=== PATIENT | female | born 1980 | race American Indian/Alaskan Native ===

== ENCOUNTER 2016-08-18 01:49 | Emergency (ER) | payer MEDICAID ==
[2016-08-18 03:47] LABS: Basophils % (Auto) 0.2 % (0.0-1.8); Eosinophils % (Auto) 0.9 % (0.0-4.3); Hematocrit 32.6 % (30.3-42.9); Hemoglobin 10.8 gm/dl (10.1-14.3); Mean Corpuscular HGB Conc 33 % (30-34); Mean Corpuscular Hemoglobin 28 pg (28-32); Mean Corpuscular Volume 84 fl (79-97); Platelet Count 306 K/mm3 (140-440); Red Blood Count 3.87 M/mm3 (3.65-5.03); Red Cell Distribution Width 16.2 % (13.2-15.2); White Blood Count 9.6 K/mm3 (4.5-11.0)
[2016-08-18 04:00] LABS: Alanine Aminotransferase 12 units/L (7-56); Albumin 3.7 g/dL (3.9-5); Albumin/Globulin Ratio 1.1 %; Alkaline Phosphatase 57 units/L (35-129); Anion Gap 17 mmol/L; Bilirubin,Total 0.3 mg/dL (0.1-1.2); Blood Urea Nitrogen 4 mg/dL (7-17); Calcium 9.4 mg/dL (8.4-10.2); Carbon Dioxide 22 mmol/L (22-30); Glucose 110 mg/dL (65-100); Lipase 21 units/L (13-60); Potassium 3.3 mmol/L (3.6-5.0); Sodium 135 mmol/L (137-145); Total Protein 7.1 g/dL (6.3-8.2)
--- NOTE | 2016-08-18 06:30 | Ultrasound Report ---
FINAL REPORT PROCEDURE: US OB \T\gt; = 14 WEEKS FETUS TECHNIQUE: Real-time limited sonographic examination was performed for evaluation of size, position, heartbeat, fluid volume for each fetus with image documentation (1 or more fetuses). CPT 75859 HISTORY: 16 weeks , abdominal pain COMPARISON: No prior studies are available for comparison. FINDINGS: MATERNAL Uterus: Within normal limits . Cervix length: 3.5 cm. Internal Os: Closed . FETUS IUP: Single living intrauterine . Position: Cephalic. Placental position: Posteriorly, without previa . Amniotic fluid volume: Normal . Heart rate and rhythm: 150 BPM, Regular . anatomic survey: Normal . MEASUREMENTS BPD: 3.8 centimeter. HC: 14.2 centimeter. AC: 12.2 centimeter. FL: 2.8 centimeter. Mean Gestational Age (composite criteria): 18 weeks 0 days. Ratio biometry: Normal . Estimated Weight: 228 grams. Interval growth: No prior studies. Estimated Due Date (earliest scan): 01/19/2017. IMPRESSION: 1. Single living intrauterine gestation at approximately 18 weeks 0 days. 2. EDC by US 01/19/2017.
[2016-08-18] MEDS ORDERED: BSS ONE (10:23)
[2016-08-18] MEDS ORDERED: FUL-GLO OP ONE ×2 (10:23→10:28)
[2016-08-18] MEDS ORDERED: TETRACAINE 0.5% ONE (10:24)
[2016-08-18] MEDS ORDERED: TETRACAINE 0.5% OU STA (10:28)
[2016-08-18] MEDS ORDERED: K-DUR PO ONE (10:41)
--- NOTE | 2016-08-18 10:43 | Emergency Department Report ---
ED General Adult HPI - General Chief complaint: Abdominal Pain Stated complaint: LEFT EYE PAIN Time Seen by Provider: 08/18/16 10:26 Source: patient, EMS (ems notes not available at time of chart dictation), RN notes reviewed Mode of arrival: Ambulatory Limitations: No Limitations - History of Present Illness Initial comments: This is a 36-year-old female. She is previously unknown to me. She is 5, para 3. Last menstrual period is April 11. Her dinkey motor operator is Dr. Desouza. The patient presents to the ER with 2 complaints. The patient complains of left eye redness, left eye pain, left eye blurry vision. This is not associated with trauma per se, although the patient reports that her allergies have been acting up, and that she has been rubbing her eye. She does report a scratchy and scratch-sensation in the left eye. Patient does not work contact lenses. The patient reports that she wears glasses. The patient also complains of abdominal pressure and cramping. The abdominal pressure and cramping has been constant during her . It is in the suprapubic, left lower quadrant and right lower quadrant. It vacillates back and forth. There is no vomiting. No irritative or obstructive urinary symptoms. The pain that she is experiencing today is the same as she always has. She reports that her abdominal pain is not her main complaints and that her ocular complaints are her main complaint. ocular comfort has no exacerbating or relieving factors that she is aware of. Abdominal discomfort has no exacerbating or relieving factors that she is aware of. -: Gradual Location: eyes, abdomen Quality: aching Consistency: intermittent Improves with: none Worsens with: none Associated Symptoms: denies: confusion, chest pain, cough, diaphoresis, loss of appetite, malaise, nausea/vomiting, shortness of breath, syncope, weakness - Related Data Previous Rx's Medication Instructions Recorded Last Taken Type Ketorolac Tromethamin 0.4%(Nf) 1 drop OS QID #100 drops 08/18/16 Unknown Rx [Acular Ls 0.4% Ophth Maryanne] Allergies Allergy/AdvReac Type Severity Reaction Status Date / Time iodine Allergy Mild Itching Verified 03/07/13 13:11 oxycodone HCl [From Percocet] Allergy Mild Itching Verified 03/07/13 13:11 ED Review of Systems ROS: Stated complaint: LEFT EYE PAIN Other details as noted in HPI Constitutional: denies: malaise Eyes: eye pain, eye discharge ENT: denies: throat pain Respiratory: denies: cough Cardiovascular: denies: chest pain Gastrointestinal: abdominal pain Genitourinary: denies: urgency, dysuria Musculoskeletal: denies: back pain Skin: denies: lesions Neurological: denies: weakness Psychiatric: denies: anxiety ED Past Medical Hx - Past Medical History Hx Hypertension: Yes Hx Heart Attack/AMI: No Hx Congestive Heart Failure: No Hx Diabetes: No Hx Deep Vein Thrombosis: No Hx Pulmonary Embolism: No Hx GERD: Yes Hx Liver Disease: No Hx Renal Disease: No Hx Sickle Cell Disease: No Hx Arthritis: Yes Hx Headaches / Migraines: No Hx Seizures: No Hx Asthma: No Hx COPD: No Hx Tuberculosis: No Hx HIV: No - Surgical History Past Surgical History?: No - Social History Smoking Status: Former Smoker Substance Use Type: None - Medications Home Medications: Home Medications Medication Instructions Recorded Confirmed Last Taken Type Ketorolac Tromethamin 0.4%(Nf) 1 drop OS QID #100 drops 08/18/16 Unknown Rx [Acular Ls 0.4% Ophth Maryanne] ED Physical Exam - General Limitations: No Limitations General appearance: alert, in no apparent distress - Head Head exam: Present: atraumatic, normocephalic - Eye Eye exam: Present: normal appearance, PERRL, EOMI, conjunctival injection, other (visual acuity intact to color perception, reading at a close distance, finger counting. Patient has no visual field cuts on direct confrontation. On fluorescein examination, there is negative Stef sign, there is negative fluorescein uptake.Intraocular pressure is measured to be 14 mmHg in the left eye. There is direct and consensual photophobia in the left eye.). Absent: nystagmus - ENT ENT exam: Present: normal exam, normal orophraynx, mucous membranes moist, normal external ear exam - Neck Neck exam: Present: normal inspection, full ROM. Absent: tenderness, meningismus - Respiratory Respiratory exam: Present: normal lung sounds bilaterally. Absent: respiratory distress, wheezes, rales, decreased breath sounds - Cardiovascular Cardiovascular Exam: Present: regular rate, normal rhythm, normal heart sounds. Absent: bradycardia, tachycardia, irregular rhythm, systolic murmur, diastolic murmur, rubs, gallop - GI/Abdominal GI/Abdominal exam: Present: soft, tenderness (there is minimal suprapubic and left lower quadrant tenderness. There is no rebound, guarding or peritoneal signs.), normal bowel sounds. Absent: distended, guarding, rebound, rigid - External exam: Present: normal external exam Speculum exam: Present: normal speculum exam Bi-manual exam: Present: normal bi-manual exam, other (during the gynecologic examination, I am escorted by nurse JERROD PATRICK). Absent: cervical motion tendernes, adnexal tenderness, adnexal mass - Extremities Exam Extremities exam: Present: normal inspection, full ROM, normal capillary refill. Absent: tenderness, pedal edema, joint swelling, calf tenderness - Back Exam Back exam: Present: normal inspection, full ROM. Absent: tenderness, CVA tenderness (R), CVA tenderness (L), muscle spasm, paraspinal tenderness, vertebral tenderness - Neurological Exam Neurological exam: Present: alert, oriented X3, normal gait, other (Extraocular movements intact. Tongue midline. No facial droop. Facial sensation intact to light touch in the V1, V2, V3 distribution bilaterally. 5 and 5 strength in 4 extremities.. Sensation is intact to light touch in 4 extremities.). Absent : motor sensory deficit - Psychiatric Psychiatric exam: Present: normal affect, normal mood - Skin Skin exam: Present: warm, dry, intact, normal color. Absent: rash ED Course Vital Signs 08/18/16 08/18/16 08/18/16 02:36 08:33 11:37 Temperature 98.1 F Pulse Rate 91 H 77 Respiratory 18 18 18 Rate Blood Pressure 145/94 Blood Pressure 138/88 [Left] O2 Sat by Pulse 99 100 Oximetry 08/18/16 12:45 Temperature Pulse Rate 74 Respiratory 18 Rate Blood Pressure Blood Pressure 127/61 [Left] O2 Sat by Pulse 99 Oximetry - Reevaluation(s) Reevaluation #1: 08/18/16 12:02 Differential diagnosis: Iritis, episcleritis, corneal abrasion, , constipation, urinary tract infection, round ligament pain assessment and plan: 36-year-old female with 2 complaints. In terms of the patient's ocular complaints, her exam and physical are not consistent with ruptured globe or acute angle glaucoma. Case is discussed with the registered sales assistant oil pump station operator chief for Dr. Ileana Álvarez, who recommended topical Acular, and indicated the patient should follow-up with an registered sales assistant within the next 7 days. He indicates the patient can follow-up with him. In terms of the patient's abdominal pain, she is afebrile with reassuring vital signs, ultrasound demonstrates an appropriate intrauterine with no evidence of placenta previa, urinalysis does not suggest urinary tract infection , her gynecologic examination is benign, and her physical exam is otherwise benign. I don't believe the patient's abdominal discomfort is emergent at this time, her history and physical did not corroborate an acute surgical emergency in terms of her abdominal discomfort. She felt improved after acetaminophen. She felt improved in the left eye after application of tetracaine. She will be discharged with a Acular prescription, instructed to follow up with an outpatient registered sales assistant, instructed to follow up with her outpatient dinkey motor operator/merchandise for resale purchasing agent. Return precautions are reviewed. ED Medical Decision Making - Lab Data Result diagrams: 08/18/16 03:21 08/18/16 03:21 Vital Signs 08/18/16 08/18/16 08/18/16 02:36 08:33 11:37 Temperature 98.1 F Pulse Rate 91 H 77 Respiratory 18 18 18 Rate Blood Pressure 145/94 Blood Pressure 138/88 [Left] O2 Sat by Pulse 99 100 Oximetry Lab Results 08/18/16 08/18/16 08/18/16 Range/Units 03:21 03:21 03:21 WBC 9.6 (4.5-11.0) K/mm3 RBC 3.87 (3.65-5.03) M/mm3 Hgb 10.8 (10.1-14.3) gm/dl Hct 32.6 (30.3-42.9) % MCV 84 (79-97) fl MCH 28 (28-32) pg MCHC 33 (30-34) % RDW 16.2 H (13.2-15.2) % Plt Count 306 (140-440) K/mm3 Lymph % (Auto) 22.6 (13.4-35.0) % [place] % (Auto) 7.5 H (0.0-7.3) % Eos % (Auto) 0.9 (0.0-4.3) % Baso % (Auto) 0.2 (0.0-1.8) % Lymph # 2.2 (1.2-5.4) K/mm3 [place] # 0.7 (0.0-0.8) K/mm3 Eos # 0.1 (0.0-0.4) K/mm3 Baso # 0.0 (0.0-0.1) K/mm3 Seg Neutrophils % 68.8 (40.0-70.0) % Seg Neutrophils # 6.6 (1.8-7.7) K/mm3 Sodium 135 L (137-145) mmol/L Potassium 3.3 L (3.6-5.0) mmol/L Chloride 99.0 (98-107) mmol/L Carbon Dioxide 22 (22-30) mmol/L Anion Gap 17 mmol/L BUN 4 L (7-17) mg/dL Creatinine 0.5 L (0.7-1.2) mg/dL Estimated GFR > 60 ml/min BUN/Creatinine Ratio 8.00 % Glucose 110 H (65-100) mg/dL Calcium 9.4 (8.4-10.2) mg/dL Total Bilirubin 0.3 (0.1-1.2) mg/dL AST 18 (5-40) units/L ALT 12 (7-56) units/L Alkaline Phosphatase 57 (35-129) units/L Total Protein 7.1 (6.3-8.2) g/dL Albumin 3.7 L (3.9-5) g/dL Albumin/Globulin Ratio 1.1 % Lipase 21 (13-60) units/L HCG, Quant 64311 H (0-4) mIU/mL Urine Color (Yellow) Urine Turbidity (Clear) Urine pH (5.0-7.0) Ur Specific [place] (1.003-1.030) Urine Protein (Negative) mg/dL Urine Glucose (UA) (Negative) mg/dL Urine Ketones (Negative) mg/dL Urine Blood (Negative) Urine Nitrite (Negative) Urine Bilirubin (Negative) Urine Urobilinogen (<2.0) mg/dL Ur Leukocyte Esterase (Negative) Urine WBC (Auto) (0.0-6.0) /HPF Urine RBC (Auto) (0.0-6.0) /HPF U Epithel Cells (Auto) (0-13.0) /HPF Urine Bacteria (Auto) (Negative) /HPF Urine Mucus /HPF 08/18/16 Range/Units 11:00 WBC (4.5-11.0) K/mm3 RBC (3.65-5.03) M/mm3 Hgb (10.1-14.3) gm/dl Hct (30.3-42.9) % MCV (79-97) fl MCH (28-32) pg MCHC (30-34) % RDW (13.2-15.2) % Plt Count (140-440) K/mm3 Lymph % (Auto) (13.4-35.0) % [place] % (Auto) (0.0-7.3) % Eos % (Auto) (0.0-4.3) % Baso % (Auto) (0.0-1.8) % Lymph # (1.2-5.4) K/mm3 [place] # (0.0-0.8) K/mm3 Eos # (0.0-0.4) K/mm3 Baso # (0.0-0.1) K/mm3 Seg Neutrophils % (40.0-70.0) % Seg Neutrophils # (1.8-7.7) K/mm3 Sodium (137-145) mmol/L Potassium (3.6-5.0) mmol/L Chloride (98-107) mmol/L Carbon Dioxide (22-30) mmol/L Anion Gap mmol/L BUN (7-17) mg/dL Creatinine (0.7-1.2) mg/dL Estimated GFR ml/min BUN/Creatinine Ratio % Glucose (65-100) mg/dL Calcium (8.4-10.2) mg/dL Total Bilirubin (0.1-1.2) mg/dL AST (5-40) units/L ALT (7-56) units/L Alkaline Phosphatase (35-129) units/L Total Protein (6.3-8.2) g/dL Albumin (3.9-5) g/dL Albumin/Globulin Ratio % Lipase (13-60) units/L HCG, Quant (0-4) mIU/mL Urine Color Yellow (Yellow) Urine Turbidity Clear (Clear) Urine pH 6.0 (5.0-7.0) Ur Specific [place] 1.013 (1.003-1.030) Urine Protein <15 mg/dl (Negative) mg/dL Urine Glucose (UA) Neg (Negative) mg/dL Urine Ketones Tr (Negative) mg/dL Urine Blood Neg (Negative) Urine Nitrite Neg (Negative) Urine Bilirubin Neg (Negative) Urine Urobilinogen < 2.0 (<2.0) mg/dL Ur Leukocyte Esterase Neg (Negative) Urine WBC (Auto) < 1.0 (0.0-6.0) /HPF Urine RBC (Auto) 1.0 (0.0-6.0) /HPF U Epithel Cells (Auto) 1.0 (0-13.0) /HPF Urine Bacteria (Auto) 1+ (Negative) /HPF Urine Mucus Few /HPF - Radiology Data Radiology results: report reviewed, image reviewed Obstetrics ultrasound demonstrates a single living intrauterine gestation at 18 weeks and 0 days. No evidence of placenta previa. Critical care attestation.: If time is entered above; I have spent that time in minutes in the direct care of this critically ill patient, excluding procedure time. ED Disposition Clinical Impression: Left eye pain Qualifiers: Weeks of gestation: 18 weeks Qualified Code(s): Z3A.18 - 18 weeks gestation of Disposition: DISCHARGED TO HOME OR SELFCARE Is pt being admited?: No Does the pt Need Aspirin: No Condition: Stable Instructions: Eye Pain (ED) Additional Instructions: Ears the eyedrop medication as directed. Follow up with an registered sales assistant within the next week. Dr. Mercer is a local registered sales assistant. I have also discussed her case with the on-call registered sales assistant for [employer], Dr. Tejeda. you may contact the ophthalmology appointment line at [phone] I do recommend that you follow-up with an registered sales assistant within the next week. Continue current outpatient medications for your , follow-up with your merchandise for resale purchasing agent within the next week to 2 weeks for your and elevated blood pressure. Blood pressure was somewhat elevated today, and this should be followed up by an merchandise for resale purchasing agent. Not following up in the recommended time fashion for either of the aforementioned conditions may result in visual loss, disability, complicated , hypertension, preeclampsia, seizure, paralysis, , loss of quality of life. Please return to the ER right away with new pain, worsening pain, migration of pain, intractable nausea or vomiting, inability to tolerate liquid feeds. Cultures were sent today, results will be available in the next 3-5 days. Have your merchandise for resale purchasing agent contact the medical records department to obtain culture results. Prescriptions: Ketorolac Tromethamin 0.4%(Nf) [Acular Ls 0.4% Ophth Maryanne] 1 drop OS QID #100 drops Referrals: LUCIANO RIOS MD [Primary Care Provider] - 3-5 Days DALY DESOUZA MD [Staff Physician] - 3-5 Days MISHA CAVAZOS MD [Staff Physician] - 3-5 Days
[2016-08-18] MEDS ORDERED: TYLENOL PO ONE (11:03)
[2016-08-18 11:46] LABS: Bacteria,Urine 1+ /HPF (Negative); Bilirubin,Urine NEG (Negative); Blood,Urine NEG (Negative); Ketones,Urine TR mg/dL (Negative); Leukocyte Esterase,Urine NEG (Negative); Mucus,Urine FEW /HPF; Nitrite,Urine NEG (Negative); Protein,Urine <15 mg/dL mg/dL (Negative); Urobilinogen,Urine < 2.0 mg/dL (<2.0); WBC,Urine < 1.0 /HPF (0.0-6.0)
[2016-08-18 12:53] VITALS: BP 127/61
== END 2016-08-18 12:50 | disposition home or self-care (01) ==
LOC: ED 01:49
DX: O26.892 Other specified pregnancy related conditions, second trimester (principal); H57.12 Ocular pain, left eye; H57.8 Other specified disorders of eye and adnexa; R10.31 Right lower quadrant pain; R10.32 Left lower quadrant pain; O16.2 Unspecified maternal hypertension, second trimester; O99.612 Diseases of the digestive system complicating pregnancy, second trimester; K21.9 Gastro-esophageal reflux disease without esophagitis; M19.90 Unspecified osteoarthritis, unspecified site; Z87.891 Personal history of nicotine dependence; Z91.041 Radiographic dye allergy status; Z88.6 Allergy status to analgesic agent; Z3A.18 18 weeks gestation of pregnancy
CPT/HCPCS: 36415; 76805; 80053; 81001; 83690; 84702; 85025; 87210; 87591

== ENCOUNTER 2017-01-01 22:24 | Inpatient (IN) | payer MEDICAID ==
--- NOTE | 2017-01-02 00:45 | History and Physical Report ---
History of Present Illness Date of examination: 01/02/17 Date of admission: 01/01/17 22:57 History of present illness: This is a 36-year-old female who presents for induction of labor. She is a history of chronic hypertension and has been co-managed with [facility]. Dr. Pacheco notified the office today that the patient's 24-hour urine specimen revealed total protein of 980 and that she needs to be admitted for induction for chronic hypertension with superimposed preeclampsia. Past History : 4 Term Births: 2 Premature Births: 1 Living Children: 3 Para: 3 Mult. Births: 0 Prev : 0 Prev. attempt? 0 Aborta: 0 Elect. Ab: 0 Spont. Ab: 0 Ectopics: 0 # 1 Delivery date: 1997 Weeks Gestation: term Delivery type: forceps Delivery location: [place] Sex: Male weight: 5#6 # 2 Delivery date: 2006 Weeks Gestation: "8months" labor: no Delivery type: Delivery location: [place] Inf[place] Sex: Female weight: 6#5 Comments: IOl for pre-e # 3 Delivery date: 2013 Weeks Gestation: term labor: no Delivery type: Delivery location: [place] Infant Sex: Female weight: 6#2 Comments: IOL for pre-e Past Medical History: HTN - listopril & HCTZ ( changed to labetalol at [facility]) Arthitis - left knee - flexeril umbilical hernia fibroids - 2cm posterior Past Surgical History: oral Past Medical History Surgery (Non-industrial training specialist): Negative Past Surgical History Abnormal PAP: positive, "a long time ago" PADMA Exposure: negative Infertility: negative Uterine Anomaly: negative Uterine Surgery (not C/S): negative Other Gynecologic Problems: negative Family Hx: Mother - HTN no cancer hx Social Hx: single no ETOH, drugs or smoking Infection History Hx of STD: none HIV Risk Eval: no Hepatitis B Risk Eval: low risk Personal hx. of genital herpes: no Partner hx. of genital herpes: no Rash, Viral, or Febrile illness since last LMP? no Varicella/Chicken Pox Status: Previous Disease TB Risk: no Genetic History ADVANCED MATERNAL AGE Congenital Heart Defect: Mom: no Dad: no Kai Disease: Mom: no Dad: no Thalassemia Mom: no Dad: no Neural Tube Defect Mom: no Dad: no Down's Syndrome Mom: no Dad: no Tristian-Sachs Mom: no Dad: no Sickle Cell Disease/Trait Mom: no Dad: no Hemophilia Mom: no Dad: no Muscular Dystrophy Mom: no Dad: no Cystic Fibrosis Mom: no Dad: no [place] Chorea Mom: no Dad: no Mental Retardation Mom: no Dad: no Fragile X Mom: no Dad: no Other Genetic/Chromosomal Disorder Mom: no Dad: no Child w/other defect Mom: no Dad: no Enviromental Exposures Xray Exposure: no Medication, drug, or alcohol use since LMP: no Chemical/Other Exposure: no Exposure to Cat Liter: no Hx of Parvovirus (Fifth Disease): no Occupational Exposure to Children: none Current Allergies (reviewed today): * SHELLFISH (Critical) * IODINE (Critical) Past History - Obstetrical History Expected Date of Delivery: 01/23/17 Actual Gestation: 37 Week(s) 0 Day(s) : 4 Medications and Allergies Allergies Allergy/AdvReac Type Severity Reaction Status Date / Time iodine Allergy Mild Itching Verified 03/07/13 13:11 oxycodone HCl [From Percocet] Allergy Mild Itching Verified 03/07/13 13:11 Home Medications Medication Instructions Recorded Confirmed Last Taken Type Ketorolac Tromethamin 0.4%(Nf) 1 drop OS QID #100 drops 08/18/16 Unknown Rx [Acular Ls 0.4% Ophth Maryanne] Review of Systems All systems: negative - Vital Signs Vital signs: Vital Signs Pulse Pulse Ox 84 98 01/02/17 00:13 01/02/17 00:13 Temp Pulse Resp BP Pulse Ox 96.7 F L 90 18 123/60 96 01/02/17 00:20 01/02/17 00:33 01/02/17 00:20 01/02/17 00:20 01/02/17 00:33 - Physical Exam Breasts: Positive: deferred Cardiovascular: Regular rate Lungs: Positive: Clear to auscultation, Normal air movement Abdomen: Positive: normal appearance Genitourinary (Female): Positive: normal external genitalia, normal perenium Vulva: both: normal Extremities: Positive: edema (1+) Deep Tendon Reflex Grade: Normal +2 - Obstetrical FHR: category 1 Uterine Contraction Monitor Mode: External Cervical Dilatation: 0 Cervical Effacement Percentage: 0 station: -3 Uterine Contraction Pattern: Absent Results All other labs normal. Assessment and Plan - Patient Problems (1) 37 weeks gestation of Current Visit: Yes Status: Acute (2) Chronic hypertension with superimposed pre-eclampsia Current Visit: Yes Status: Acute Plan to address problem: Chronic hypertension with superimposed preeclampsia explained to patient. Serial induction discussed. Cervidil induction explained, questions were answered and she voiced understanding desires to proceed with induction of labor (3) Carrier of group B Streptococcus Current Visit: Yes Status: Acute
[2017-01-02] MEDS ORDERED: BRETHINE SUB-Q PRN (01:33)
[2017-01-02] MEDS ORDERED: BRETHINE IVP PRN (01:33)
[2017-01-02] MEDS ORDERED: XYLOCAINE 2% INFILTRATI ONE (01:33)
[2017-01-02] MEDS ORDERED: MAGNESIUM SULFATE 4GM/100ML 4 GM/100 ML BAG IV ONE (01:33)
[2017-01-02] MEDS ORDERED: ePHEDrine SULFATE IV PRN (01:33)
[2017-01-02] MEDS ORDERED: CERVIDIL VG ONE ×2 (01:33→18:30)
[2017-01-02] MEDS ORDERED: MINERAL OIL PO PRN (01:33)
[2017-01-02] MEDS ORDERED: POLYCILLIN/NS 2 GM/100 ML 2 GM/100 ML BAG IV ONE (01:33)
[2017-01-02] MEDS ORDERED: APRESOLINE IV PRN (01:33)
[2017-01-02] MEDS ORDERED: ZOFRAN IV PRN (01:33)
[2017-01-02] MEDS ORDERED: LACTATED RINGERS 1,000 ML IV SCH (02:00)
[2017-01-02] MEDS ORDERED: PITOCin/NS 20 UNIT/1000ML DRIP 20 UNITS/1,000 ML BAG IV SCH (02:00)
[2017-01-02] MEDS ORDERED: MAGNESIUM SULFATE 40GM/1000ML 40 GM/1,000 ML BAG IV SCH (02:00)
[2017-01-02 02:56] LABS: Hematocrit 31.8 % (30.3-42.9); Hemoglobin 10.5 gm/dl (10.1-14.3); Mean Corpuscular HGB Conc 33 % (30-34); Mean Corpuscular Hemoglobin 29 pg (28-32); Mean Corpuscular Volume 89 fl (79-97); Platelet Count 266 K/mm3 (140-440); Red Blood Count 3.56 M/mm3 (3.65-5.03); Red Cell Distribution Width 15.2 % (13.2-15.2); White Blood Count 8.7 K/mm3 (4.5-11.0)
[2017-01-02] MEDS ORDERED: SUBLIMAZE IV PRN (04:13)
[2017-01-02] MEDS: LACTATED RINGERS 1,000 ML IV SCH ×3 (04:44→20:23)
--- NOTE | 2017-01-02 08:23 | Progress Note ---
Assessment and Plan cervidil IOL in progress, patient c/o strong ctx and requesting IV sedation. She does admit to having a low pain tolerance. SVE FT/thick/-2 [address] still [address] place. fht cat 1. Continue current management, patient may eat and shower after cervidil removed. Plan discussed with patient and s/o, all parties verbalize understanding of plan. Patient states last was a 5 day serial IOL so she understands the process. Pt denies JIMENEZ, visual changes or epigastric pain. - Patient Problems (1) 37 weeks gestation of Current Visit: Yes Status: Acute (2) Carrier of group B Streptococcus Current Visit: Yes Status: Acute Plan to address problem: antibiotics in active labor (3) Chronic hypertension with superimposed pre-eclampsia Current Visit: Yes Status: Acute Plan to address problem: mag sulfate in active labor Subjective - Subjective Date of service: 01/02/17 Principal diagnosis: IUP 37+1, pre-e IOL Patient reports: movement normal, contractions, no loss of fluid, no vaginal bleeding Objective - Vital Signs Vital Signs: Vital Signs - 12hr 01/02/17 01/02/17 01/02/17 00:13 00:14 00:18 Temperature Pulse Rate 84 83 90 Respiratory Rate Blood Pressure 123/60 O2 Sat by Pulse 98 98 Oximetry 01/02/17 01/02/17 01/02/17 00:20 00:23 00:28 Temperature 96.7 F L Pulse Rate 85 92 H 89 Respiratory 18 Rate Blood Pressure 123/60 O2 Sat by Pulse 97 98 97 Oximetry 01/02/17 01/02/17 01/02/17 00:33 00:42 00:47 Temperature Pulse Rate 90 89 88 Respiratory Rate Blood Pressure O2 Sat by Pulse 96 96 96 Oximetry 01/02/17 01/02/17 01/02/17 00:52 00:57 01:02 Temperature Pulse Rate 101 H 99 H 100 H Respiratory Rate Blood Pressure O2 Sat by Pulse 96 96 96 Oximetry 01/02/17 01/02/17 01/02/17 01:07 01:12 01:17 Temperature Pulse Rate 87 88 89 Respiratory Rate Blood Pressure 123/79 O2 Sat by Pulse 98 98 98 Oximetry 01/02/17 01/02/17 01/02/17 01:22 01:27 01:40 Temperature Pulse Rate 82 84 99 H Respiratory Rate Blood Pressure O2 Sat by Pulse 99 98 98 Oximetry 01/02/17 01/02/17 01/02/17 01:43 01:45 01:50 Temperature Pulse Rate 83 89 92 H Respiratory Rate Blood Pressure 132/80 O2 Sat by Pulse 96 97 Oximetry 01/02/17 01/02/17 01/02/17 01:55 02:00 02:05 Temperature Pulse Rate 97 H 92 H 88 Respiratory Rate Blood Pressure O2 Sat by Pulse 97 98 96 Oximetry 01/02/17 01/02/17 01/02/17 02:10 02:13 02:15 Temperature Pulse Rate 85 85 92 H Respiratory Rate Blood Pressure 99/70 O2 Sat by Pulse 97 97 Oximetry 01/02/17 01/02/17 01/02/17 02:20 02:25 02:30 Temperature Pulse Rate 91 H 93 H 86 Respiratory Rate Blood Pressure O2 Sat by Pulse 95 97 96 Oximetry 01/02/17 01/02/17 01/02/17 02:31 02:35 02:39 Temperature Pulse Rate 91 H 88 84 Respiratory Rate Blood Pressure O2 Sat by Pulse 94 94 94 Oximetry 01/02/17 01/02/17 01/02/17 02:40 02:45 02:50 Temperature Pulse Rate 87 84 91 H Respiratory Rate Blood Pressure O2 Sat by Pulse 94 98 98 Oximetry 01/02/17 01/02/17 01/02/17 02:55 03:00 03:05 Temperature Pulse Rate 88 86 84 Respiratory Rate Blood Pressure O2 Sat by Pulse 97 97 97 Oximetry 01/02/17 01/02/17 01/02/17 03:11 03:15 03:17 Temperature Pulse Rate 92 H 87 96 H Respiratory Rate Blood Pressure O2 Sat by Pulse 97 96 94 Oximetry 01/02/17 01/02/17 01/02/17 03:20 03:24 03:25 Temperature Pulse Rate 82 81 84 Respiratory Rate Blood Pressure 130/60 O2 Sat by Pulse 97 97 Oximetry 01/02/17 01/02/17 01/02/17 03:30 03:35 03:40 Temperature Pulse Rate 84 86 82 Respiratory Rate Blood Pressure O2 Sat by Pulse 96 96 97 Oximetry 01/02/17 01/02/17 01/02/17 03:46 03:50 03:55 Temperature Pulse Rate 85 91 H 87 Respiratory Rate Blood Pressure O2 Sat by Pulse 97 96 96 Oximetry 01/02/17 01/02/17 01/02/17 04:01 04:05 04:10 Temperature Pulse Rate 77 82 89 Respiratory Rate Blood Pressure O2 Sat by Pulse 100 98 98 Oximetry 01/02/17 01/02/17 01/02/17 04:29 04:34 04:38 Temperature Pulse Rate 88 78 79 Respiratory 18 Rate Blood Pressure O2 Sat by Pulse 96 97 94 Oximetry 01/02/17 01/02/17 01/02/17 04:39 04:45 04:46 Temperature Pulse Rate 79 72 76 Respiratory Rate Blood Pressure O2 Sat by Pulse 94 93 90 Oximetry 01/02/17 01/02/17 01/02/17 04:49 04:54 04:55 Temperature Pulse Rate 76 79 80 Respiratory Rate Blood Pressure O2 Sat by Pulse 91 94 91 Oximetry 01/02/17 01/02/17 01/02/17 05:00 05:05 05:10 Temperature Pulse Rate 81 78 92 H Respiratory Rate Blood Pressure O2 Sat by Pulse 92 92 82 L Oximetry 01/02/17 01/02/17 01/02/17 05:15 05:20 05:24 Temperature Pulse Rate 91 H 87 89 Respiratory Rate Blood Pressure 136/63 O2 Sat by Pulse 88 93 94 Oximetry 01/02/17 01/02/17 01/02/17 05:25 05:29 05:30 Temperature Pulse Rate 89 94 H 89 Respiratory Rate Blood Pressure O2 Sat by Pulse 93 76 L 93 Oximetry 01/02/17 01/02/17 01/02/17 05:35 05:40 05:45 Temperature Pulse Rate 83 84 80 Respiratory Rate Blood Pressure O2 Sat by Pulse 94 92 93 Oximetry 01/02/17 01/02/17 01/02/17 05:50 05:55 06:00 Temperature Pulse Rate 83 82 87 Respiratory Rate Blood Pressure O2 Sat by Pulse 90 91 91 Oximetry 01/02/17 01/02/17 01/02/17 06:05 06:06 06:10 Temperature Pulse Rate 85 82 88 Respiratory Rate Blood Pressure O2 Sat by Pulse 91 93 93 Oximetry 01/02/17 01/02/17 01/02/17 06:15 06:20 06:23 Temperature Pulse Rate 85 85 92 H Respiratory Rate Blood Pressure O2 Sat by Pulse 94 96 94 Oximetry 01/02/17 01/02/17 01/02/17 06:24 06:25 06:30 Temperature Pulse Rate 86 88 98 H Respiratory Rate Blood Pressure 111/59 O2 Sat by Pulse 95 94 Oximetry 01/02/17 01/02/17 01/02/17 06:35 06:36 06:40 Temperature Pulse Rate 89 94 H 81 Respiratory Rate Blood Pressure O2 Sat by Pulse 96 89 93 Oximetry 01/02/17 01/02/17 01/02/17 06:43 06:45 06:49 Temperature Pulse Rate 86 82 83 Respiratory Rate Blood Pressure O2 Sat by Pulse 94 93 94 Oximetry 01/02/17 01/02/17 01/02/17 06:50 06:55 06:57 Temperature Pulse Rate 96 H 93 H 92 H Respiratory Rate Blood Pressure O2 Sat by Pulse 94 96 94 Oximetry 01/02/17 01/02/17 01/02/17 07:00 07:03 07:05 Temperature Pulse Rate 91 H 91 H 95 H Respiratory Rate Blood Pressure O2 Sat by Pulse 96 93 98 Oximetry 01/02/17 01/02/17 01/02/17 07:10 07:14 07:15 Temperature Pulse Rate 89 89 93 H Respiratory Rate Blood Pressure O2 Sat by Pulse 96 92 96 Oximetry 01/02/17 01/02/17 01/02/17 07:19 07:20 07:24 Temperature Pulse Rate 82 78 80 Respiratory Rate Blood Pressure 123/81 O2 Sat by Pulse 93 92 Oximetry 01/02/17 01/02/17 01/02/17 07:25 07:30 07:35 Temperature Pulse Rate 79 82 84 Respiratory Rate Blood Pressure O2 Sat by Pulse 92 98 98 Oximetry 01/02/17 01/02/17 01/02/17 07:40 07:45 07:50 Temperature Pulse Rate 88 84 95 H Respiratory Rate Blood Pressure O2 Sat by Pulse 96 97 95 Oximetry 01/02/17 01/02/17 08:09 08:10 Temperature 96.6 F L Pulse Rate 80 80 Respiratory 20 Rate Blood Pressure 130/72 130/72 O2 Sat by Pulse 97 Oximetry - Exam Breasts: normal Cardiovascular: Regular rate Lungs: Clear to auscultation Abdomen: Present: normal appearance, soft Vulva: both: normal Uterus: Present: normal FHR: auscultation normal, category 1 Uterine Contraction Monitor Mode: External Cervical Dilatation: 0.5 (firm) Cervical Effacement Percentage: 30 station: -2 Uterine Contraction Pattern: Regular Uterine Tone Measurement Phase: Contraction Uterine Contraction Intensity: Mild Extremities: normal Deep Tendon Reflex Grade: Normal +2 - Labs Labs: Abnormal Labs 01/02/17 00:10 RBC 3.56 L Laboratory Results - last 24 hr 01/02/17 01/02/17 00:10 00:10 WBC 8.7 RBC 3.56 L Hgb 10.5 Hct 31.8 MCV 89 MCH 29 MCHC 33 RDW 15.2 Plt Count 266 Blood Type A POSITIVE Antibody Screen Negative
[2017-01-02] MEDS: STADOL IV PRN ×2 (08:33→14:04)
[2017-01-02] MEDS: PEPCID PO SCH ×2 (10:33→22:00)
[2017-01-02 10:38] LABS: Alanine Aminotransferase 15 units/L (7-56); Albumin 3.5 g/dL (3.9-5); Alkaline Phosphatase 113 units/L (35-129)
[2017-01-02 10:43] LABS: Bilirubin,Direct < 0.2 mg/dL (0-0.2); Bilirubin,Indirect 0.2 mg/dL
--- NOTE | 2017-01-02 17:08 | Event Note ---
Date: 01/02/17 cervidil removed this afternoon, cervix remains unfavorable. Plan to allow patient to eat and shower, then replace cervidil @ 1830. Plan discussed with patient via phone, all questions addressed.
[2017-01-02] MEDS: SUBLIMAZE IV PRN (21:36)
[2017-01-03] MEDS: STADOL IV PRN ×2 (00:16→03:35)
[2017-01-03] MEDS: LACTATED RINGERS 1,000 ML IV SCH ×2 (04:01→13:53)
[2017-01-03] MEDS ORDERED: POLYCILLIN/NS 2 GM/100 ML 2 GM/100 ML BAG IV ONE (10:02)
[2017-01-03] MEDS: PITOCin/NS 30 UNIT/500ML 30 UNITS/500 ML BAG IV SCH ×6 (10:12→14:09)
--- NOTE | 2017-01-03 10:22 | Progress Note ---
Assessment and Plan pit to be started VELMA (second cervidil removed 0700.) plan of care discussed, patient and s/o verbalize understanding. FHT CAT 2 for decreased variability. Will continue to monitor closely. - Patient Problems (1) 37 weeks gestation of Current Visit: Yes Status: Acute (2) Carrier of group B Streptococcus Current Visit: Yes Status: Acute (3) Chronic hypertension with superimposed pre-eclampsia Current Visit: Yes Status: Acute Subjective - Subjective Date of service: 01/03/17 Principal diagnosis: IUP 37+2, pre-e IOL day #2 Patient reports: movement normal, contractions, no loss of fluid, no vaginal bleeding Objective - Vital Signs Vital Signs: Vital Signs - 12hr 01/02/17 01/02/17 01/02/17 22:12 22:17 22:22 Temperature Pulse Rate 83 91 H 82 Respiratory Rate Blood Pressure O2 Sat by Pulse 94 98 94 Oximetry 01/02/17 01/02/17 01/02/17 22:26 22:34 22:39 Temperature Pulse Rate 82 73 80 Respiratory Rate Blood Pressure 132/59 O2 Sat by Pulse 96 98 Oximetry 01/02/17 01/02/17 01/02/17 22:41 22:44 22:49 Temperature Pulse Rate 73 85 78 Respiratory Rate Blood Pressure O2 Sat by Pulse 93 97 92 Oximetry 01/02/17 01/02/17 01/02/17 22:54 22:56 22:59 Temperature Pulse Rate 77 90 79 Respiratory Rate Blood Pressure O2 Sat by Pulse 98 94 92 Oximetry 01/02/17 01/02/17 01/02/17 23:04 23:07 23:09 Temperature Pulse Rate 82 94 H 78 Respiratory Rate Blood Pressure O2 Sat by Pulse 97 94 95 Oximetry 01/02/17 01/02/17 01/02/17 23:14 23:20 23:21 Temperature Pulse Rate 87 81 79 Respiratory Rate Blood Pressure O2 Sat by Pulse 98 98 94 Oximetry 01/02/17 01/02/17 01/02/17 23:24 23:25 23:28 Temperature Pulse Rate 78 80 85 Respiratory Rate Blood Pressure 135/77 O2 Sat by Pulse 95 94 Oximetry 01/02/17 01/02/17 01/02/17 23:30 23:33 23:35 Temperature Pulse Rate 82 79 84 Respiratory Rate Blood Pressure O2 Sat by Pulse 93 93 97 Oximetry 01/02/17 01/02/17 01/02/17 23:40 23:41 23:45 Temperature Pulse Rate 99 H 84 83 Respiratory Rate Blood Pressure O2 Sat by Pulse 94 93 98 Oximetry 01/02/17 01/02/17 01/02/17 23:53 23:54 23:59 Temperature Pulse Rate 94 H 85 86 Respiratory Rate Blood Pressure O2 Sat by Pulse 85 98 94 Oximetry 01/03/17 01/03/17 01/03/17 00:16 00:17 00:18 Temperature Pulse Rate 79 84 Respiratory 18 Rate Blood Pressure O2 Sat by Pulse 93 95 Oximetry 01/03/17 01/03/17 01/03/17 00:24 01:00 01:05 Temperature Pulse Rate 77 88 80 Respiratory Rate Blood Pressure 149/76 O2 Sat by Pulse 97 96 Oximetry 01/03/17 01/03/17 01/03/17 01:06 01:10 01:11 Temperature Pulse Rate 85 93 H 89 Respiratory Rate Blood Pressure O2 Sat by Pulse 93 94 92 Oximetry 01/03/17 01/03/17 01/03/17 01:15 01:24 02:24 Temperature Pulse Rate 86 81 87 Respiratory Rate Blood Pressure 131/74 136/70 O2 Sat by Pulse 93 Oximetry 01/03/17 01/03/17 01/03/17 03:24 03:35 04:24 Temperature Pulse Rate 85 88 Respiratory 20 Rate Blood Pressure 134/74 152/67 O2 Sat by Pulse Oximetry 01/03/17 01/03/17 01/03/17 04:48 04:49 04:53 Temperature Pulse Rate 82 85 88 Respiratory Rate Blood Pressure O2 Sat by Pulse 92 94 97 Oximetry 01/03/17 01/03/17 01/03/17 04:55 04:58 05:00 Temperature Pulse Rate 86 92 H 86 Respiratory Rate Blood Pressure O2 Sat by Pulse 94 99 94 Oximetry 01/03/17 01/03/17 01/03/17 05:03 05:18 05:19 Temperature Pulse Rate 84 93 H 87 Respiratory Rate Blood Pressure O2 Sat by Pulse 95 90 94 Oximetry 01/03/17 01/03/17 01/03/17 05:24 05:29 05:30 Temperature Pulse Rate 89 95 H 85 Respiratory Rate Blood Pressure 138/80 O2 Sat by Pulse 93 93 92 Oximetry 01/03/17 01/03/17 01/03/17 05:34 05:35 05:39 Temperature Pulse Rate 89 97 H 85 Respiratory Rate Blood Pressure O2 Sat by Pulse 93 93 94 Oximetry 01/03/17 01/03/17 01/03/17 05:44 05:49 05:54 Temperature Pulse Rate 89 85 87 Respiratory Rate Blood Pressure O2 Sat by Pulse 91 95 92 Oximetry 01/03/17 01/03/17 01/03/17 05:59 06:00 06:04 Temperature Pulse Rate 88 84 87 Respiratory Rate Blood Pressure O2 Sat by Pulse 93 94 95 Oximetry 01/03/17 01/03/17 01/03/17 06:05 06:09 06:12 Temperature Pulse Rate 85 100 H 90 Respiratory Rate Blood Pressure O2 Sat by Pulse 94 97 94 Oximetry 01/03/17 01/03/17 01/03/17 06:14 06:18 06:19 Temperature Pulse Rate 91 H 87 87 Respiratory Rate Blood Pressure O2 Sat by Pulse 96 94 94 Oximetry 01/03/17 01/03/17 01/03/17 06:23 06:24 06:25 Temperature Pulse Rate 87 94 H 91 H Respiratory Rate Blood Pressure 136/62 O2 Sat by Pulse 89 97 Oximetry 01/03/17 01/03/17 01/03/17 06:28 06:30 06:34 Temperature Pulse Rate 86 85 81 Respiratory Rate Blood Pressure O2 Sat by Pulse 94 97 94 Oximetry 01/03/17 01/03/17 01/03/17 06:35 06:39 06:40 Temperature Pulse Rate 82 95 H 91 H Respiratory Rate Blood Pressure O2 Sat by Pulse 94 92 97 Oximetry 01/03/17 01/03/17 08:33 08:41 Temperature 96.6 F L Pulse Rate 88 88 Respiratory 18 Rate Blood Pressure 137/77 137/77 O2 Sat by Pulse Oximetry - Exam Breasts: normal Cardiovascular: Regular rate Lungs: Clear to auscultation, Normal air movement Abdomen: Present: normal appearance, soft Vulva: both: normal Uterus: Present: normal FHR: auscultation normal, category 1 Uterine Contraction Monitor Mode: External Cervical Dilatation: 2 Cervical Effacement Percentage: 30 station: -4 Uterine Contraction Frequency (min): rare Uterine Contraction Pattern: Irregular Uterine Tone Measurement Phase: Resting Extremities: normal Deep Tendon Reflex Grade: Normal +2 - Labs Labs: Abnormal Labs 01/02/17 01/02/17 00:10 09:44 RBC 3.56 L Creatinine 0.5 L Albumin 3.5 L Laboratory Results - last 24 hr 01/02/17 01/02/17 01/02/17 09:44 09:44 09:44 Creatinine 0.5 L Estimated GFR > 60 Uric Acid 4.7 Total Bilirubin 0.40 Direct Bilirubin < 0.2 Indirect Bilirubin 0.2 AST 20 ALT 15 Alkaline Phosphatase 113 Total Protein 7.0 Albumin 3.5 L Albumin/Globulin Ratio 1.0 RPR Nonreactive
--- NOTE | 2017-01-03 10:32 | Ultrasound Report ---
ULTRASOUND OB LIMITED History: well being Technique: Transabdominal ultrasound with Doppler interrogation. Gestation: Single Position: Cephalic Placenta: Fundal Placental Grade: 2 Heart Rate: 141 BPM
[2017-01-03] MEDS: SUBLIMAZE IV PRN ×2 (13:43→23:06)
[2017-01-03] MEDS: POLYCILLIN/NS 1 GM/50 ML 1 GM/50 ML BAG IV SCH ×2 (14:06→18:22)
--- NOTE | 2017-01-03 14:41 | Progress Note ---
Assessment and Plan pitocin infusing @ 28mU, mild ctx q2-4 minutes - patient tolerating them very well with little pain. SVE unchanged and still unfavorable. Will continue pitocin until this evening. If no change, will d/c and repeat cervidil tonight. All questions addressed, verbalized understanding. - Patient Problems (1) 37 weeks gestation of Current Visit: Yes Status: Acute (2) Carrier of group B Streptococcus Current Visit: Yes Status: Acute (3) Chronic hypertension with superimposed pre-eclampsia Current Visit: Yes Status: Acute Subjective - Subjective Date of service: 01/03/17 Principal diagnosis: IUP 37+2, pre-e IOL day #2 Patient reports: movement normal, contractions, no loss of fluid, no vaginal bleeding Objective - Vital Signs Vital Signs: Vital Signs - 12hr 01/03/17 01/03/17 01/03/17 03:24 03:35 04:24 Temperature Pulse Rate 85 88 Respiratory 20 Rate Blood Pressure 134/74 152/67 O2 Sat by Pulse Oximetry 01/03/17 01/03/17 01/03/17 04:48 04:49 04:53 Temperature Pulse Rate 82 85 88 Respiratory Rate Blood Pressure O2 Sat by Pulse 92 94 97 Oximetry 01/03/17 01/03/17 01/03/17 04:55 04:58 05:00 Temperature Pulse Rate 86 92 H 86 Respiratory Rate Blood Pressure O2 Sat by Pulse 94 99 94 Oximetry 01/03/17 01/03/17 01/03/17 05:03 05:18 05:19 Temperature Pulse Rate 84 93 H 87 Respiratory Rate Blood Pressure O2 Sat by Pulse 95 90 94 Oximetry 01/03/17 01/03/17 01/03/17 05:24 05:29 05:30 Temperature Pulse Rate 89 95 H 85 Respiratory Rate Blood Pressure 138/80 O2 Sat by Pulse 93 93 92 Oximetry 01/03/17 01/03/17 01/03/17 05:34 05:35 05:39 Temperature Pulse Rate 89 97 H 85 Respiratory Rate Blood Pressure O2 Sat by Pulse 93 93 94 Oximetry 01/03/17 01/03/17 01/03/17 05:44 05:49 05:54 Temperature Pulse Rate 89 85 87 Respiratory Rate Blood Pressure O2 Sat by Pulse 91 95 92 Oximetry 01/03/17 01/03/17 01/03/17 05:59 06:00 06:04 Temperature Pulse Rate 88 84 87 Respiratory Rate Blood Pressure O2 Sat by Pulse 93 94 95 Oximetry 01/03/17 01/03/17 01/03/17 06:05 06:09 06:12 Temperature Pulse Rate 85 100 H 90 Respiratory Rate Blood Pressure O2 Sat by Pulse 94 97 94 Oximetry 01/03/17 01/03/17 01/03/17 06:14 06:18 06:19 Temperature Pulse Rate 91 H 87 87 Respiratory Rate Blood Pressure O2 Sat by Pulse 96 94 94 Oximetry 01/03/17 01/03/17 01/03/17 06:23 06:24 06:25 Temperature Pulse Rate 87 94 H 91 H Respiratory Rate Blood Pressure 136/62 O2 Sat by Pulse 89 97 Oximetry 01/03/17 01/03/17 01/03/17 06:28 06:30 06:34 Temperature Pulse Rate 86 85 81 Respiratory Rate Blood Pressure O2 Sat by Pulse 94 97 94 Oximetry 01/03/17 01/03/17 01/03/17 06:35 06:39 06:40 Temperature Pulse Rate 82 95 H 91 H Respiratory Rate Blood Pressure O2 Sat by Pulse 94 92 97 Oximetry 01/03/17 01/03/17 01/03/17 08:33 08:41 11:29 Temperature 96.6 F L Pulse Rate 88 88 82 Respiratory 18 Rate Blood Pressure 137/77 137/77 138/69 O2 Sat by Pulse Oximetry 01/03/17 01/03/17 01/03/17 11:45 12:00 12:14 Temperature Pulse Rate 85 91 H 96 H Respiratory Rate Blood Pressure 130/61 123/67 120/64 O2 Sat by Pulse Oximetry 01/03/17 01/03/17 01/03/17 12:29 12:44 13:02 Temperature Pulse Rate 84 82 85 Respiratory Rate Blood Pressure 115/58 121/66 132/69 O2 Sat by Pulse Oximetry 01/03/17 01/03/17 01/03/17 13:16 13:30 13:44 Temperature Pulse Rate 75 90 80 Respiratory Rate Blood Pressure 160/70 125/68 114/64 O2 Sat by Pulse Oximetry 01/03/17 01/03/17 13:59 14:14 Temperature Pulse Rate 77 89 Respiratory Rate Blood Pressure 115/58 121/67 O2 Sat by Pulse Oximetry - Exam Breasts: normal Cardiovascular: Regular rate Lungs: Clear to auscultation, Normal air movement Abdomen: Present: normal appearance, soft Vulva: both: normal Uterus: Present: normal FHR: auscultation normal, category 1 Uterine Contraction Monitor Mode: External Cervical Dilatation: 1 (hard) Cervical Effacement Percentage: 30 station: -4 Uterine Contraction Pattern: Regular Uterine Tone Measurement Phase: Contraction Uterine Contraction Intensity: Mild Extremities: normal Deep Tendon Reflex Grade: Normal +2 - Labs Labs: Abnormal Labs 01/02/17 01/02/17 00:10 09:44 RBC 3.56 L Creatinine 0.5 L Albumin 3.5 L
[2017-01-03] MEDS ORDERED: CERVIDIL VG ONE (19:30)
[2017-01-03] MEDS: ROBITUSSIN DM PO PRN (20:32)
[2017-01-04] MEDS: LACTATED RINGERS 1,000 ML IV SCH ×3 (00:34→20:25)
[2017-01-04] MEDS: STADOL IV PRN ×3 (01:10→13:23)
[2017-01-04] MEDS: SUBLIMAZE IV PRN ×3 (05:05→23:39)
--- NOTE | 2017-01-04 08:49 | Progress Note ---
Assessment and Plan - Patient Problems (1) 37 weeks gestation of Current Visit: Yes Status: Acute (2) Carrier of group B Streptococcus Current Visit: Yes Status: Acute (3) Chronic hypertension with superimposed pre-eclampsia Current Visit: Yes Status: Acute Plan to address problem: -con't serial IOL -Pt states she has taken up to 5 days for IOL previously. I did d/w her serial IOL. Pt expressed understanding and all questions were addressed and answered. Subjective - Subjective Date of service: 01/04/17 Principal diagnosis: IUP 37+2, pre-e IOL day #3 Interval history: pt c/o having soreness of the vagina. No headaches or blurry vision at this time. Pt overall feeling well. Patient reports: movement normal, contractions, no loss of fluid, no vaginal bleeding Objective - Vital Signs Vital Signs: Vital Signs - 12hr 01/03/17 01/03/17 01/03/17 21:00 21:14 21:29 Temperature Pulse Rate 96 H 87 82 Respiratory Rate Blood Pressure 130/69 135/67 140/66 O2 Sat by Pulse Oximetry 01/03/17 01/03/17 01/03/17 21:44 22:15 22:30 Temperature Pulse Rate 93 H 93 H 90 Respiratory Rate Blood Pressure 141/71 141/75 135/80 O2 Sat by Pulse Oximetry 01/03/17 01/03/17 01/03/17 22:44 23:00 23:15 Temperature Pulse Rate 91 H 93 H 86 Respiratory Rate Blood Pressure 145/84 132/63 137/78 O2 Sat by Pulse Oximetry 01/03/17 01/03/17 01/04/17 23:29 23:45 00:01 Temperature Pulse Rate 82 83 78 Respiratory Rate Blood Pressure 131/76 164/89 139/76 O2 Sat by Pulse Oximetry 01/04/17 01/04/17 01/04/17 00:30 00:44 00:59 Temperature Pulse Rate 90 81 86 Respiratory Rate Blood Pressure 121/67 128/72 133/79 O2 Sat by Pulse Oximetry 01/04/17 01/04/17 01/04/17 01:16 01:31 01:36 Temperature Pulse Rate 81 82 76 Respiratory Rate Blood Pressure 160/87 128/73 O2 Sat by Pulse 93 99 Oximetry 01/04/17 01/04/17 01/04/17 01:41 01:45 01:46 Temperature Pulse Rate 77 76 81 Respiratory Rate Blood Pressure 141/67 O2 Sat by Pulse 99 99 Oximetry 01/04/17 01/04/17 01/04/17 01:51 01:56 01:59 Temperature Pulse Rate 84 82 75 Respiratory Rate Blood Pressure 147/68 O2 Sat by Pulse 99 99 Oximetry 01/04/17 01/04/17 01/04/17 02:01 02:06 02:11 Temperature Pulse Rate 78 81 83 Respiratory Rate Blood Pressure O2 Sat by Pulse 98 99 99 Oximetry 01/04/17 01/04/17 01/04/17 02:15 02:30 03:05 Temperature Pulse Rate 91 H 82 90 Respiratory Rate Blood Pressure 173/85 133/67 O2 Sat by Pulse 93 Oximetry 01/04/17 01/04/17 01/04/17 03:06 03:11 03:12 Temperature Pulse Rate 92 H 84 86 Respiratory Rate Blood Pressure O2 Sat by Pulse 94 94 94 Oximetry 01/04/17 01/04/17 01/04/17 03:15 03:16 03:17 Temperature Pulse Rate 85 85 82 Respiratory Rate Blood Pressure 123/62 O2 Sat by Pulse 91 94 Oximetry 01/04/17 01/04/17 01/04/17 03:21 03:24 03:26 Temperature Pulse Rate 91 H 87 81 Respiratory Rate Blood Pressure O2 Sat by Pulse 94 94 93 Oximetry 01/04/17 01/04/17 01/04/17 03:29 03:30 03:44 Temperature Pulse Rate 85 81 83 Respiratory Rate Blood Pressure 131/74 122/71 O2 Sat by Pulse 93 Oximetry 01/04/17 01/04/17 01/04/17 03:59 04:14 04:55 Temperature Pulse Rate 80 81 92 H Respiratory Rate Blood Pressure 115/66 119/63 O2 Sat by Pulse 96 Oximetry 01/04/17 01/04/17 01/04/17 04:58 04:59 05:00 Temperature Pulse Rate 94 H 89 98 H Respiratory Rate Blood Pressure 132/73 O2 Sat by Pulse 94 94 Oximetry 01/04/17 01/04/17 01/04/17 05:03 05:05 05:10 Temperature Pulse Rate 90 85 76 Respiratory Rate Blood Pressure O2 Sat by Pulse 93 96 99 Oximetry 01/04/17 01/04/17 01/04/17 05:14 05:15 05:20 Temperature Pulse Rate 74 78 78 Respiratory Rate Blood Pressure 136/62 O2 Sat by Pulse 99 99 Oximetry 01/04/17 01/04/17 01/04/17 05:25 05:29 05:30 Temperature Pulse Rate 79 76 79 Respiratory Rate Blood Pressure 125/57 O2 Sat by Pulse 99 99 Oximetry 01/04/17 01/04/17 01/04/17 05:35 05:40 05:44 Temperature Pulse Rate 82 93 H 86 Respiratory Rate Blood Pressure 129/61 O2 Sat by Pulse 99 99 Oximetry 01/04/17 01/04/17 01/04/17 05:45 05:50 05:55 Temperature Pulse Rate 89 83 90 Respiratory Rate Blood Pressure O2 Sat by Pulse 99 99 99 Oximetry 01/04/17 01/04/17 01/04/17 05:59 06:00 06:05 Temperature 97.6 F Pulse Rate 76 85 92 H Respiratory 18 Rate Blood Pressure 128/61 129/61 O2 Sat by Pulse 97 96 Oximetry 01/04/17 01/04/17 01/04/17 06:06 06:10 06:17 Temperature Pulse Rate 85 92 H 89 Respiratory Rate Blood Pressure 149/83 O2 Sat by Pulse 93 97 Oximetry 01/04/17 01/04/17 01/04/17 06:20 06:25 06:30 Temperature Pulse Rate 94 H 77 78 Respiratory Rate Blood Pressure 131/61 O2 Sat by Pulse 98 98 97 Oximetry 01/04/17 01/04/17 01/04/17 06:35 06:44 07:54 Temperature Pulse Rate 100 H 85 84 Respiratory Rate Blood Pressure 129/61 133/68 O2 Sat by Pulse 97 Oximetry - Exam Cervical Dilatation: 1.5 Cervical Effacement Percentage: 50 station: -3 Uterine Contraction Pattern: Irregular Uterine Tone Measurement Phase: Resting Uterine Contraction Intensity: Mild - Labs Labs: Abnormal Labs 01/02/17 01/02/17 00:10 09:44 RBC 3.56 L Creatinine 0.5 L Albumin 3.5 L
[2017-01-04] MEDS: PEPCID PO SCH ×2 (11:30→22:05)
[2017-01-04] MEDS ORDERED: CERVIDIL VG ONE (20:14)
--- NOTE | 2017-01-04 20:23 | Event Note ---
Date: 01/04/17 I d/w pt and s/o serial IOL. I d/w that at this time she does not have an ob reason for c/s and it would be elective due to not having been in full labor at this time. Pt advised that should a maternal or indication arise she would get a c/s. Pt declines elective c/s at this time and desires to cont the serial IOL. Will examine pt with placement of cervidil. At this time awaiting its arrival from the lab.
--- NOTE | 2017-01-04 20:51 | Progress Note ---
Assessment and Plan - Patient Problems (1) 37 weeks gestation of Current Visit: Yes Status: Acute (2) Carrier of group B Streptococcus Current Visit: Yes Status: Acute (3) Chronic hypertension with superimposed pre-eclampsia Current Visit: Yes Status: Acute Plan to address problem: -con't serial IOL -Pt states she has taken up to 5 days for IOL previously. I did d/w her serial IOL. Pt expressed understanding and all questions were addressed and answered. Subjective - Subjective Date of service: 01/04/17 Principal diagnosis: IUP 37+2, pre-e IOL day #3 Interval history: cervidil placed without difficulty. cx: /-3 /post/ med Patient reports: movement normal, contractions, no loss of fluid, no vaginal bleeding Objective - Vital Signs Vital Signs: Vital Signs - 12hr 01/04/17 01/04/17 01/04/17 09:46 10:39 10:40 Temperature 97.3 F L Pulse Rate 89 94 H 94 H Respiratory 18 Rate Blood Pressure 133/76 122/67 122/67 O2 Sat by Pulse Oximetry 01/04/17 01/04/17 01/04/17 10:44 11:00 11:31 Temperature 98.3 F Pulse Rate 90 83 86 Respiratory 18 Rate Blood Pressure 118/64 96/46 139/73 O2 Sat by Pulse Oximetry 01/04/17 01/04/17 01/04/17 11:44 12:30 12:46 Temperature Pulse Rate 90 85 90 Respiratory Rate Blood Pressure 114/70 139/83 134/63 O2 Sat by Pulse Oximetry 01/04/17 01/04/17 01/04/17 13:00 13:14 13:30 Temperature Pulse Rate 86 75 70 Respiratory Rate Blood Pressure 124/60 113/53 110/53 O2 Sat by Pulse Oximetry 01/04/17 01/04/17 01/04/17 13:44 14:01 14:15 Temperature Pulse Rate 78 77 78 Respiratory Rate Blood Pressure 110/53 107/59 109/53 O2 Sat by Pulse Oximetry 01/04/17 01/04/17 01/04/17 14:29 14:46 15:01 Temperature Pulse Rate 80 89 93 H Respiratory Rate Blood Pressure 108/55 124/71 129/62 O2 Sat by Pulse Oximetry 01/04/17 01/04/17 01/04/17 15:14 15:32 15:53 Temperature Pulse Rate 80 81 86 Respiratory Rate Blood Pressure 138/60 131/75 O2 Sat by Pulse 95 Oximetry 01/04/17 01/04/17 01/04/17 15:54 15:55 15:58 Temperature Pulse Rate 92 H 85 84 Respiratory Rate Blood Pressure 145/91 O2 Sat by Pulse 92 93 Oximetry 01/04/17 01/04/17 01/04/17 16:00 16:02 16:03 Temperature Pulse Rate 75 81 78 Respiratory Rate Blood Pressure 134/69 O2 Sat by Pulse 93 92 Oximetry 01/04/17 01/04/17 01/04/17 16:08 16:13 16:14 Temperature Pulse Rate 82 82 77 Respiratory Rate Blood Pressure 109/61 O2 Sat by Pulse 94 93 Oximetry 01/04/17 01/04/17 01/04/17 16:15 16:18 16:22 Temperature Pulse Rate 78 78 76 Respiratory Rate Blood Pressure O2 Sat by Pulse 93 96 93 Oximetry 01/04/17 01/04/17 01/04/17 16:23 16:28 16:29 Temperature Pulse Rate 77 74 78 Respiratory Rate Blood Pressure 112/58 O2 Sat by Pulse 93 94 Oximetry 01/04/17 01/04/17 01/04/17 16:33 16:35 16:38 Temperature Pulse Rate 79 78 80 Respiratory Rate Blood Pressure O2 Sat by Pulse 93 94 94 Oximetry 01/04/17 01/04/17 01/04/17 16:41 16:43 16:45 Temperature Pulse Rate 89 95 H 76 Respiratory Rate Blood Pressure 113/62 O2 Sat by Pulse 94 96 Oximetry 01/04/17 01/04/17 01/04/17 16:47 16:48 16:53 Temperature Pulse Rate 91 H 75 95 H Respiratory Rate Blood Pressure O2 Sat by Pulse 92 94 94 Oximetry 01/04/17 01/04/17 01/04/17 16:58 17:01 17:03 Temperature Pulse Rate 80 77 85 Respiratory Rate Blood Pressure 123/71 O2 Sat by Pulse 97 93 94 Oximetry 01/04/17 01/04/17 01/04/17 17:14 17:45 18:01 Temperature Pulse Rate 93 H 84 85 Respiratory Rate Blood Pressure 138/77 122/60 118/56 O2 Sat by Pulse Oximetry 08/21/17 08/21/17 08/21/17 18:15 18:29 18:44 Temperature Pulse Rate 101 H 101 H 86 Respiratory Rate Blood Pressure 119/66 116/65 116/60 O2 Sat by Pulse Oximetry 01/04/17 01/04/17 01/04/17 20:21 20:22 20:26 Temperature 98.0 F Pulse Rate 90 96 H 92 H Respiratory 18 Rate Blood Pressure 119/65 119/65 O2 Sat by Pulse 96 96 Oximetry 01/04/17 01/04/17 01/04/17 20:27 20:32 20:37 Temperature Pulse Rate 101 H 94 H 102 H Respiratory Rate Blood Pressure O2 Sat by Pulse 97 98 96 Oximetry 01/04/17 01/04/17 01/04/17 20:42 20:45 20:47 Temperature Pulse Rate 91 H 84 92 H Respiratory Rate Blood Pressure 112/65 O2 Sat by Pulse 96 98 Oximetry - Exam FHR: category 1 Cervical Dilatation: 2 Cervical Effacement Percentage: 50 station: -3 - Labs Labs: Abnormal Labs 01/02/17 01/02/17 00:10 09:44 RBC 3.56 L Creatinine 0.5 L Albumin 3.5 L
[2017-01-04] MEDS: ROBITUSSIN DM PO PRN (22:05)
[2017-01-05] MEDS: SUBLIMAZE IV PRN ×2 (04:22→23:38)
--- NOTE | 2017-01-05 07:33 | Progress Note ---
Assessment and Plan patient resting, no complaints. discussed plan for today including pitocin, epidural, antibiotics and AROM. All questions addressed. - Patient Problems (1) 37 weeks gestation of Current Visit: Yes Status: Acute (2) Carrier of group B Streptococcus Current Visit: Yes Status: Acute Plan to address problem: start antibiotics (3) Chronic hypertension with superimposed pre-eclampsia Current Visit: Yes Status: Acute Subjective - Subjective Date of service: 01/05/17 Principal diagnosis: IUP 37+3, pre-e IOL day #4 Patient reports: movement normal, contractions, no loss of fluid, no vaginal bleeding Objective - Vital Signs Vital Signs: Vital Signs - 12hr 01/04/17 01/04/17 01/04/17 20:21 20:22 20:26 Temperature 98.0 F Pulse Rate 90 96 H 92 H Respiratory 18 Rate Blood Pressure 119/65 119/65 O2 Sat by Pulse 96 96 Oximetry 01/04/17 01/04/17 01/04/17 20:27 20:32 20:37 Temperature Pulse Rate 101 H 94 H 102 H Respiratory Rate Blood Pressure O2 Sat by Pulse 97 98 96 Oximetry 01/04/17 01/04/17 01/04/17 20:42 20:45 20:47 Temperature Pulse Rate 91 H 84 92 H Respiratory Rate Blood Pressure 112/65 O2 Sat by Pulse 96 98 Oximetry 01/04/17 01/04/17 01/04/17 20:52 20:57 21:02 Temperature Pulse Rate 94 H 96 H 92 H Respiratory Rate Blood Pressure O2 Sat by Pulse 97 96 94 Oximetry 01/04/17 01/04/17 01/04/17 21:07 21:12 21:15 Temperature Pulse Rate 102 H 89 86 Respiratory Rate Blood Pressure 111/65 O2 Sat by Pulse 96 98 Oximetry 01/04/17 01/04/17 01/04/17 21:17 21:29 21:34 Temperature Pulse Rate 93 H 99 H 96 H Respiratory Rate Blood Pressure O2 Sat by Pulse 96 97 97 Oximetry 01/04/17 01/04/17 01/04/17 21:39 21:44 21:49 Temperature Pulse Rate 89 93 H 98 H Respiratory Rate Blood Pressure O2 Sat by Pulse 97 96 96 Oximetry 01/04/17 01/04/17 01/04/17 21:54 21:59 22:19 Temperature Pulse Rate 93 H 94 H 88 Respiratory Rate Blood Pressure O2 Sat by Pulse 96 96 98 Oximetry 01/04/17 01/04/17 01/04/17 22:24 22:28 22:29 Temperature Pulse Rate 90 87 95 H Respiratory Rate Blood Pressure O2 Sat by Pulse 97 93 90 Oximetry 01/04/17 01/04/17 01/04/17 22:34 22:39 22:44 Temperature Pulse Rate 92 H 90 94 H Respiratory Rate Blood Pressure O2 Sat by Pulse 94 95 97 Oximetry 01/04/17 01/04/17 01/04/17 22:49 22:50 22:54 Temperature Pulse Rate 90 93 H 91 H Respiratory Rate Blood Pressure O2 Sat by Pulse 96 94 95 Oximetry 01/04/17 01/04/17 01/04/17 22:57 23:02 23:07 Temperature Pulse Rate 98 H 92 H 99 H Respiratory Rate Blood Pressure O2 Sat by Pulse 90 97 95 Oximetry 01/04/17 01/04/17 01/04/17 23:12 23:17 23:18 Temperature Pulse Rate 88 92 H 87 Respiratory Rate Blood Pressure O2 Sat by Pulse 97 96 94 Oximetry 01/04/17 01/04/17 01/04/17 23:28 23:35 23:39 Temperature Pulse Rate 94 H 107 H Respiratory 19 Rate Blood Pressure O2 Sat by Pulse 97 97 Oximetry 01/04/17 01/04/17 01/04/17 23:40 23:45 23:50 Temperature Pulse Rate 88 85 85 Respiratory Rate Blood Pressure O2 Sat by Pulse 93 91 91 Oximetry 01/04/17 01/04/17 01/04/17 23:52 23:55 23:58 Temperature Pulse Rate 79 85 78 Respiratory Rate Blood Pressure O2 Sat by Pulse 94 93 94 Oximetry 01/05/17 01/05/17 01/05/17 00:00 00:05 00:10 Temperature Pulse Rate 88 88 80 Respiratory Rate Blood Pressure O2 Sat by Pulse 92 93 92 Oximetry 01/05/17 01/05/17 01/05/17 00:14 00:15 00:19 Temperature Pulse Rate 85 86 81 Respiratory Rate Blood Pressure 103/55 O2 Sat by Pulse 92 91 Oximetry 01/05/17 01/05/17 01/05/17 00:20 00:25 00:30 Temperature Pulse Rate 85 81 96 H Respiratory Rate Blood Pressure O2 Sat by Pulse 92 94 95 Oximetry 01/05/17 01/05/17 01/05/17 00:32 00:35 00:39 Temperature Pulse Rate 97 H 100 H 105 H Respiratory Rate Blood Pressure O2 Sat by Pulse 91 84 94 Oximetry 01/05/17 01/05/17 01/05/17 00:40 01:18 04:22 Temperature Pulse Rate 108 H 85 Respiratory 18 Rate Blood Pressure 111/53 O2 Sat by Pulse 94 Oximetry 01/05/17 01/05/17 01/05/17 04:25 05:18 06:18 Temperature Pulse Rate 87 85 85 Respiratory Rate Blood Pressure 135/73 135/63 132/61 O2 Sat by Pulse Oximetry - Exam Breasts: normal Cardiovascular: Regular rate Lungs: Clear to auscultation Abdomen: Present: normal appearance, soft Vulva: both: normal Uterus: Present: normal FHR: auscultation normal Uterine Contraction Monitor Mode: External Cervical Dilatation: 2 Cervical Effacement Percentage: 40 station: -3 Uterine Contraction Pattern: Absent Extremities: normal Deep Tendon Reflex Grade: Normal +2 - Labs Labs: Abnormal Labs 01/02/17 01/02/17 00:10 09:44 RBC 3.56 L Creatinine 0.5 L Albumin 3.5 L
[2017-01-05] MEDS: LACTATED RINGERS 1,000 ML IV SCH ×3 (09:01→14:28)
[2017-01-05] MEDS: PITOCin/NS 30 UNIT/500ML 30 UNITS/500 ML BAG IV SCH ×8 (09:12→17:51)
[2017-01-05] MEDS ORDERED: ePHEDrine SULFATE ONE (11:32)
[2017-01-05] MEDS ORDERED: NARCAN 2 MG/2 ML IV PRN (11:36)
[2017-01-05] MEDS ORDERED: ePHEDrine SULFATE IV PRN (11:36)
--- NOTE | 2017-01-05 11:36 | Anesthesia Consultation ---
Anesthesia Consult and Med Hx Date of service: 01/05/17 - Airway Anesthetic Teeth Evaluation: Good ROM Head & Neck: Adequate Mental/Hyoid Distance: Adequate Mallampati Class: Class II Intubation Access Assessment: Probably Good - Pre-Operative Health Status ASA Pre-Surgery Classification: ASA3 Proposed Anesthetic Plan: Epidural, Spinal - Pulmonary Hx Asthma: No COPD: No Hx Pneumonia: No - Cardiovascular System Hx Hypertension: Yes Hx Heart Attack/AMI: No Hx Valvular Heart Disease: No - Central Nervous System Hx Seizures: No CVA: No Hx Psychiatric Problems: No - Endocrine Hx Renal Disease: No Hx End Stage Renal Disease: No Hx Liver Disease: No Hx Hypothyroidism: No Hx Hyperthyroidism: No - Hematic Hx Anemia: Yes Hx Sickle Cell Disease: No - Other Systems Hx Alcohol Use: No Hx Substance Use: No Hx Cancer: No Hx Obesity: Yes (super morbidly obese)
--- NOTE | 2017-01-05 12:42 | Progress Note ---
Assessment and Plan patient SROM during epidural, clear fluid. Lipscomb placed without difficulty draining to BSB. IUPC placed without difficulty, EFM tracing well. Dr. Guerrero updated. BP NL - Patient Problems (1) 37 weeks gestation of Current Visit: Yes Status: Acute (2) Carrier of group B Streptococcus Current Visit: Yes Status: Acute (3) Chronic hypertension with superimposed pre-eclampsia Current Visit: Yes Status: Acute Subjective - Subjective Date of service: 01/05/17 Principal diagnosis: IUP 37+3, pre-e IOL day #4 Patient reports: loss of fluid, movement normal, no vaginal bleeding Objective - Vital Signs Vital Signs: Vital Signs - 12hr 01/05/17 01/05/17 01/05/17 00:39 00:40 01:18 Temperature Pulse Rate 105 H 108 H 85 Respiratory Rate Blood Pressure 111/53 O2 Sat by Pulse 94 94 Oximetry 01/05/17 01/05/17 01/05/17 04:22 04:25 05:18 Temperature Pulse Rate 87 85 Respiratory 18 Rate Blood Pressure 135/73 135/63 O2 Sat by Pulse Oximetry 01/05/17 01/05/17 01/05/17 06:18 08:46 08:51 Temperature Pulse Rate 85 89 105 H Respiratory Rate Blood Pressure 132/61 O2 Sat by Pulse 96 97 Oximetry 01/05/17 01/05/17 01/05/17 08:53 08:56 09:01 Temperature 98.1 F Pulse Rate 91 H 92 H 88 Respiratory 18 Rate Blood Pressure 108/55 105/55 O2 Sat by Pulse 97 97 Oximetry 01/05/17 01/05/17 01/05/17 09:04 09:06 09:10 Temperature Pulse Rate 85 88 84 Respiratory Rate Blood Pressure O2 Sat by Pulse 94 95 94 Oximetry 01/05/17 01/05/17 01/05/17 09:11 09:16 09:21 Temperature Pulse Rate 78 79 80 Respiratory Rate Blood Pressure O2 Sat by Pulse 92 94 94 Oximetry 01/05/17 01/05/17 01/05/17 09:25 09:26 09:31 Temperature Pulse Rate 82 93 H 96 H Respiratory Rate Blood Pressure 127/72 O2 Sat by Pulse 97 96 Oximetry 01/05/17 01/05/17 01/05/17 09:33 09:36 09:40 Temperature Pulse Rate 91 H 89 86 Respiratory Rate Blood Pressure O2 Sat by Pulse 94 95 94 Oximetry 01/05/17 01/05/17 01/05/17 09:41 09:46 09:47 Temperature Pulse Rate 87 88 83 Respiratory Rate Blood Pressure O2 Sat by Pulse 97 95 94 Oximetry 01/05/17 01/05/17 01/05/17 09:51 09:52 09:53 Temperature Pulse Rate 85 90 82 Respiratory Rate Blood Pressure 113/57 O2 Sat by Pulse 94 94 Oximetry 01/05/17 01/05/17 01/05/17 09:56 09:58 10:01 Temperature Pulse Rate 89 91 H 91 H Respiratory Rate Blood Pressure O2 Sat by Pulse 95 94 95 Oximetry 01/05/17 01/05/17 01/05/17 10:04 10:06 10:10 Temperature Pulse Rate 90 90 84 Respiratory Rate Blood Pressure O2 Sat by Pulse 94 94 94 Oximetry 01/05/17 01/05/17 01/05/17 10:11 10:16 10:21 Temperature Pulse Rate 93 H 89 110 H Respiratory Rate Blood Pressure O2 Sat by Pulse 97 94 97 Oximetry 01/05/17 01/05/17 01/05/17 10:24 10:53 11:24 Temperature Pulse Rate 84 96 H 88 Respiratory Rate Blood Pressure 116/55 129/61 128/60 O2 Sat by Pulse Oximetry 01/05/17 01/05/17 01/05/17 11:53 11:54 11:59 Temperature Pulse Rate 90 95 H 93 H Respiratory Rate Blood Pressure 150/66 O2 Sat by Pulse 96 98 Oximetry 01/05/17 01/05/17 01/05/17 12:04 12:06 12:09 Temperature Pulse Rate 93 H 87 93 H Respiratory Rate Blood Pressure 139/65 O2 Sat by Pulse 97 98 Oximetry 01/05/17 01/05/17 01/05/17 12:10 12:12 12:14 Temperature Pulse Rate 88 88 82 Respiratory Rate Blood Pressure 125/55 128/58 120/59 O2 Sat by Pulse 97 Oximetry 01/05/17 01/05/17 01/05/17 12:16 12:18 12:19 Temperature Pulse Rate 83 91 H 88 Respiratory Rate Blood Pressure 122/58 122/60 O2 Sat by Pulse 86 Oximetry 01/05/17 01/05/17 01/05/17 12:20 12:22 12:24 Temperature Pulse Rate 88 96 H 87 Respiratory Rate Blood Pressure 130/58 117/58 119/57 O2 Sat by Pulse 97 Oximetry 01/05/17 01/05/17 01/05/17 12:26 12:28 12:29 Temperature Pulse Rate 90 86 87 Respiratory Rate Blood Pressure 121/61 115/56 O2 Sat by Pulse 97 Oximetry 01/05/17 01/05/17 01/05/17 12:30 12:32 12:34 Temperature Pulse Rate 84 87 85 Respiratory Rate Blood Pressure 121/55 122/59 O2 Sat by Pulse 96 Oximetry - Exam Breasts: normal Cardiovascular: Regular rate Lungs: Clear to auscultation, Normal air movement Abdomen: Present: normal appearance, soft Vulva: both: normal Uterus: Present: normal FHR: category 1 Uterine Contraction Monitor Mode: Internal Cervical Dilatation: 3 Cervical Effacement Percentage: 50 station: -3 Uterine Contraction Frequency (min): 4-5 Uterine Contraction Duration: 50-60 Uterine Contraction Pattern: Regular Uterine Tone Measurement Phase: Contraction Uterine Contraction Intensity: Mild Extremities: normal Deep Tendon Reflex Grade: Normal +2 - Labs Labs: Abnormal Labs 01/02/17 01/02/17 00:10 09:44 RBC 3.56 L Creatinine 0.5 L Albumin 3.5 L
[2017-01-05 13:02] LABS: ISTAT DEVICE 0
[2017-01-05 13:02] LABS: ISTAT DEVICE 0
[2017-01-05] MEDS: fentaNYL-BUPIV 2 MCG/ML-0.125% 200 MCG/100 ML BAG EPIDURAL SCH ×2 (14:24→20:54)
[2017-01-05 15:16] LABS: ISTAT Base Excess TNR; ISTAT HCO3 TNR; ISTAT PCO2 TNR (35-45); ISTAT PH TNR (7.35-7.45)
[2017-01-05] MEDS: POLYCILLIN/NS 1 GM/50 ML 1 GM/50 ML BAG IV SCH ×2 (15:16→18:59)
[2017-01-05 15:17] LABS: ISTAT PO2 TNR (80-105); ISTAT SO2 TNR; ISTAT TCO2 TNR
[2017-01-05 15:18] LABS: ISTAT Base Excess TNR; ISTAT HCO3 TNR
[2017-01-05 15:19] LABS: ISTAT PCO2 TNR (35-45); ISTAT PH TNR (7.35-7.45); ISTAT PO2 TNR (80-105); ISTAT SO2 TNR; ISTAT TCO2 TNR
--- NOTE | 2017-01-05 16:44 | Progress Note ---
Assessment and Plan Patient comfortable with epidural, SVE 3.5/50/-3 - vertex not well applied to cervix. moderate amount of fluid noted. Pitocin @ 32mU, MVUs 225. AMFM consult reviewed from 12/21/16 EFW 5#15 although leopolds larger. Patient reports largest baby 6#5. Dr. Guerrero updated. - Patient Problems (1) 37 weeks gestation of Current Visit: Yes Status: Acute (2) Carrier of group B Streptococcus Current Visit: Yes Status: Acute Plan to address problem: ampicillin q 4hours, second dose of ampicillin 191 (3) Chronic hypertension with superimposed pre-eclampsia Current Visit: Yes Status: Acute Subjective - Subjective Date of service: 01/05/17 Principal diagnosis: IUP 37+4, pre-e IOL day #4 Patient reports: loss of fluid, movement normal, other (comfortable with epidural), no vaginal bleeding Objective - Vital Signs Vital Signs: Vital Signs - 12hr 01/05/17 01/05/17 01/05/17 05:18 06:18 08:46 Temperature Pulse Rate 85 85 89 Respiratory Rate Blood Pressure 135/63 132/61 O2 Sat by Pulse 96 Oximetry 01/05/17 01/05/17 01/05/17 08:51 08:53 08:56 Temperature 98.1 F Pulse Rate 105 H 91 H 92 H Respiratory 18 Rate Blood Pressure 108/55 105/55 O2 Sat by Pulse 97 97 Oximetry 01/05/17 01/05/17 01/05/17 09:01 09:04 09:06 Temperature Pulse Rate 88 85 88 Respiratory Rate Blood Pressure O2 Sat by Pulse 97 94 95 Oximetry 01/05/17 01/05/17 01/05/17 09:10 09:11 09:16 Temperature Pulse Rate 84 78 79 Respiratory Rate Blood Pressure O2 Sat by Pulse 94 92 94 Oximetry 01/05/17 01/05/17 01/05/17 09:21 09:25 09:26 Temperature Pulse Rate 80 82 93 H Respiratory Rate Blood Pressure 127/72 O2 Sat by Pulse 94 97 Oximetry 01/05/17 01/05/17 01/05/17 09:31 09:33 09:36 Temperature Pulse Rate 96 H 91 H 89 Respiratory Rate Blood Pressure O2 Sat by Pulse 96 94 95 Oximetry 01/05/17 01/05/17 01/05/17 09:40 09:41 09:46 Temperature Pulse Rate 86 87 88 Respiratory Rate Blood Pressure O2 Sat by Pulse 94 97 95 Oximetry 01/05/17 01/05/17 01/05/17 09:47 09:51 09:52 Temperature Pulse Rate 83 85 90 Respiratory Rate Blood Pressure O2 Sat by Pulse 94 94 94 Oximetry 01/05/17 01/05/17 01/05/17 09:53 09:56 09:58 Temperature Pulse Rate 82 89 91 H Respiratory Rate Blood Pressure 113/57 O2 Sat by Pulse 95 94 Oximetry 01/05/17 01/05/17 01/05/17 10:01 10:04 10:06 Temperature Pulse Rate 91 H 90 90 Respiratory Rate Blood Pressure O2 Sat by Pulse 95 94 94 Oximetry 01/05/17 01/05/17 01/05/17 10:10 10:11 10:16 Temperature Pulse Rate 84 93 H 89 Respiratory Rate Blood Pressure O2 Sat by Pulse 94 97 94 Oximetry 01/05/17 01/05/17 01/05/17 10:21 10:24 10:53 Temperature Pulse Rate 110 H 84 96 H Respiratory Rate Blood Pressure 116/55 129/61 O2 Sat by Pulse 97 Oximetry 01/05/17 01/05/17 01/05/17 11:24 11:53 11:54 Temperature Pulse Rate 88 90 95 H Respiratory Rate Blood Pressure 128/60 150/66 O2 Sat by Pulse 96 Oximetry 01/05/17 01/05/17 01/05/17 11:59 12:04 12:06 Temperature Pulse Rate 93 H 93 H 87 Respiratory Rate Blood Pressure 139/65 O2 Sat by Pulse 98 97 Oximetry 01/05/17 01/05/17 01/05/17 12:09 12:10 12:12 Temperature Pulse Rate 93 H 88 88 Respiratory Rate Blood Pressure 125/55 128/58 O2 Sat by Pulse 98 Oximetry 01/05/17 01/05/17 01/05/17 12:14 12:16 12:18 Temperature Pulse Rate 82 83 91 H Respiratory Rate Blood Pressure 120/59 122/58 122/60 O2 Sat by Pulse 97 Oximetry 01/05/17 01/05/17 01/05/17 12:19 12:20 12:22 Temperature Pulse Rate 88 88 96 H Respiratory Rate Blood Pressure 130/58 117/58 O2 Sat by Pulse 86 Oximetry 01/05/17 01/05/17 01/05/17 12:24 12:26 12:28 Temperature Pulse Rate 87 90 86 Respiratory Rate Blood Pressure 119/57 121/61 115/56 O2 Sat by Pulse 97 Oximetry 01/05/17 01/05/17 01/05/17 12:29 12:30 12:32 Temperature Pulse Rate 87 84 87 Respiratory Rate Blood Pressure 121/55 122/59 O2 Sat by Pulse 97 Oximetry 01/05/17 01/05/17 01/05/17 12:34 12:36 12:37 Temperature Pulse Rate 83 85 86 Respiratory Rate Blood Pressure 99/55 110/59 O2 Sat by Pulse 96 94 Oximetry 01/05/17 01/05/17 01/05/17 12:38 12:39 12:40 Temperature Pulse Rate 81 80 75 Respiratory Rate Blood Pressure 110/56 112/55 O2 Sat by Pulse 95 Oximetry 01/05/17 01/05/17 01/05/17 12:42 12:44 12:46 Temperature Pulse Rate 81 76 78 Respiratory Rate Blood Pressure 102/53 98/55 103/62 O2 Sat by Pulse 93 Oximetry 01/05/17 01/05/17 01/05/17 12:48 12:49 12:50 Temperature Pulse Rate 76 80 73 Respiratory Rate Blood Pressure 115/56 113/57 O2 Sat by Pulse 92 93 Oximetry 01/05/17 01/05/17 01/05/17 12:52 12:54 12:56 Temperature Pulse Rate 75 76 74 Respiratory Rate Blood Pressure 117/64 119/65 117/62 O2 Sat by Pulse 97 94 Oximetry 01/05/17 01/05/17 01/05/17 12:58 12:59 13:00 Temperature Pulse Rate 75 74 77 Respiratory Rate Blood Pressure 120/60 118/59 O2 Sat by Pulse 88 Oximetry 01/05/17 01/05/17 01/05/17 13:02 13:04 13:06 Temperature Pulse Rate 76 79 82 Respiratory Rate Blood Pressure 131/67 125/64 129/69 O2 Sat by Pulse 91 Oximetry 01/05/17 01/05/17 01/05/17 13:08 13:09 13:10 Temperature Pulse Rate 78 79 83 Respiratory Rate Blood Pressure 127/62 127/61 O2 Sat by Pulse 94 Oximetry 01/05/17 01/05/17 01/05/17 13:12 13:14 13:16 Temperature Pulse Rate 83 80 82 Respiratory Rate Blood Pressure 134/66 123/64 124/62 O2 Sat by Pulse 92 Oximetry 01/05/17 01/05/17 01/05/17 13:18 13:19 13:20 Temperature Pulse Rate 82 83 80 Respiratory Rate Blood Pressure 119/58 120/60 O2 Sat by Pulse 97 Oximetry 01/05/17 01/05/17 01/05/17 13:22 13:24 13:26 Temperature Pulse Rate 87 77 82 Respiratory Rate Blood Pressure 117/56 122/58 115/59 O2 Sat by Pulse 94 97 Oximetry 01/05/17 01/05/17 01/05/17 13:28 13:29 13:34 Temperature Pulse Rate 75 77 81 Respiratory Rate Blood Pressure 113/57 O2 Sat by Pulse 97 95 Oximetry 01/05/17 01/05/17 01/05/17 13:39 13:44 13:49 Temperature Pulse Rate 82 84 85 Respiratory Rate Blood Pressure O2 Sat by Pulse 96 98 94 Oximetry 01/05/17 01/05/17 01/05/17 13:55 13:59 14:01 Temperature Pulse Rate 90 93 H 91 H Respiratory Rate Blood Pressure 133/61 O2 Sat by Pulse 98 96 Oximetry 01/05/17 01/05/17 01/05/17 14:06 14:11 14:16 Temperature Pulse Rate 84 87 84 Respiratory Rate Blood Pressure O2 Sat by Pulse 97 99 100 Oximetry 01/05/17 01/05/17 01/05/17 14:27 14:29 15:01 Temperature Pulse Rate 87 100 H 97 H Respiratory Rate Blood Pressure 135/72 126/68 116/55 O2 Sat by Pulse Oximetry 01/05/17 01/05/17 01/05/17 15:30 16:00 16:29 Temperature Pulse Rate 88 88 90 Respiratory Rate Blood Pressure 118/55 115/55 117/59 O2 Sat by Pulse Oximetry - Exam Breasts: normal Cardiovascular: Regular rate Lungs: Clear to auscultation, Normal air movement Abdomen: Present: normal appearance, soft Vulva: both: normal Uterus: Present: normal FHR: auscultation normal, category 1 Uterine Contraction Monitor Mode: Internal Cervical Dilatation: 3.5 Cervical Effacement Percentage: 50 station: -3 Uterine Contraction Frequency (min): 2-4 Uterine Contraction Duration: 60 Uterine Contraction Pattern: Regular Uterine Tone Measurement Phase: Contraction Uterine Contraction Intensity: Strong/Firm Uterine Tone Measurement (Intensity): 225 (MVUs 6246-8915) Extremities: normal Deep Tendon Reflex Grade: Normal +2 - Labs Labs: Abnormal Labs 01/02/17 01/02/17 00:10 09:44 RBC 3.56 L Creatinine 0.5 L Albumin 3.5 L Laboratory Results - last 24 hr 01/05/17 01/05/17 12:52 12:56 POC ABG pH TNR TNR POC ABG pCO2 TNR TNR POC ABG pO2 TNR TNR POC ABG HCO3 TNR TNR POC ABG Total CO2 TNR TNR POC ABG O2 Sat TNR TNR POC ABG Base Excess TNR TNR FiO2 TNR TNR
[2017-01-05] MEDS ORDERED: HEMABATE IM PRN (19:14)
[2017-01-05] MEDS ORDERED: CYTOTEC PR PRN (19:14)
--- NOTE | 2017-01-05 19:14 | Progress Note ---
Assessment and Plan - Patient Problems (1) 37 weeks gestation of Current Visit: Yes Status: Acute (2) Carrier of group B Streptococcus Current Visit: Yes Status: Acute (3) Chronic hypertension with superimposed pre-eclampsia Current Visit: Yes Status: Acute Subjective - Subjective Date of service: 01/05/17 Principal diagnosis: IUP 37+4, pre-e IOL day #4 Patient reports: new complaints (rectal pressure), loss of fluid, movement normal, other (comfortable with epidural), no vaginal bleeding Objective - Vital Signs Vital Signs: Vital Signs - 12hr 01/05/17 01/05/17 01/05/17 08:46 08:51 08:53 Temperature Pulse Rate 89 105 H 91 H Respiratory Rate Blood Pressure 108/55 O2 Sat by Pulse 96 97 Oximetry 01/05/17 01/05/17 01/05/17 08:56 09:01 09:04 Temperature 98.1 F Pulse Rate 92 H 88 85 Respiratory 18 Rate Blood Pressure 105/55 O2 Sat by Pulse 97 97 94 Oximetry 01/05/17 01/05/17 01/05/17 09:06 09:10 09:11 Temperature Pulse Rate 88 84 78 Respiratory Rate Blood Pressure O2 Sat by Pulse 95 94 92 Oximetry 01/05/17 01/05/17 01/05/17 09:16 09:21 09:25 Temperature Pulse Rate 79 80 82 Respiratory Rate Blood Pressure 127/72 O2 Sat by Pulse 94 94 Oximetry 01/05/17 01/05/17 01/05/17 09:26 09:31 09:33 Temperature Pulse Rate 93 H 96 H 91 H Respiratory Rate Blood Pressure O2 Sat by Pulse 97 96 94 Oximetry 01/05/17 01/05/17 01/05/17 09:36 09:40 09:41 Temperature Pulse Rate 89 86 87 Respiratory Rate Blood Pressure O2 Sat by Pulse 95 94 97 Oximetry 01/05/17 01/05/17 01/05/17 09:46 09:47 09:51 Temperature Pulse Rate 88 83 85 Respiratory Rate Blood Pressure O2 Sat by Pulse 95 94 94 Oximetry 01/05/17 01/05/17 01/05/17 09:52 09:53 09:56 Temperature Pulse Rate 90 82 89 Respiratory Rate Blood Pressure 113/57 O2 Sat by Pulse 94 95 Oximetry 01/05/17 01/05/17 01/05/17 09:58 10:01 10:04 Temperature Pulse Rate 91 H 91 H 90 Respiratory Rate Blood Pressure O2 Sat by Pulse 94 95 94 Oximetry 01/05/17 01/05/17 01/05/17 10:06 10:10 10:11 Temperature Pulse Rate 90 84 93 H Respiratory Rate Blood Pressure O2 Sat by Pulse 94 94 97 Oximetry 01/05/17 01/05/17 01/05/17 10:16 10:21 10:24 Temperature Pulse Rate 89 110 H 84 Respiratory Rate Blood Pressure 116/55 O2 Sat by Pulse 94 97 Oximetry 01/05/17 01/05/17 01/05/17 10:53 11:24 11:53 Temperature Pulse Rate 96 H 88 90 Respiratory Rate Blood Pressure 129/61 128/60 150/66 O2 Sat by Pulse Oximetry 01/05/17 01/05/17 01/05/17 11:54 11:59 12:04 Temperature Pulse Rate 95 H 93 H 93 H Respiratory Rate Blood Pressure O2 Sat by Pulse 96 98 97 Oximetry 01/05/17 01/05/17 01/05/17 12:06 12:09 12:10 Temperature Pulse Rate 87 93 H 88 Respiratory Rate Blood Pressure 139/65 125/55 O2 Sat by Pulse 98 Oximetry 01/05/17 01/05/17 01/05/17 12:12 12:14 12:16 Temperature Pulse Rate 88 82 83 Respiratory Rate Blood Pressure 128/58 120/59 122/58 O2 Sat by Pulse 97 Oximetry 01/05/17 01/05/17 01/05/17 12:18 12:19 12:20 Temperature Pulse Rate 91 H 88 88 Respiratory Rate Blood Pressure 122/60 130/58 O2 Sat by Pulse 86 Oximetry 01/05/17 01/05/17 01/05/17 12:22 12:24 12:26 Temperature Pulse Rate 96 H 87 90 Respiratory Rate Blood Pressure 117/58 119/57 121/61 O2 Sat by Pulse 97 Oximetry 01/05/17 01/05/17 01/05/17 12:28 12:29 12:30 Temperature Pulse Rate 86 87 84 Respiratory Rate Blood Pressure 115/56 121/55 O2 Sat by Pulse 97 Oximetry 01/05/17 01/05/17 01/05/17 12:32 12:34 12:36 Temperature Pulse Rate 87 83 85 Respiratory Rate Blood Pressure 122/59 99/55 110/59 O2 Sat by Pulse 96 Oximetry 01/05/17 01/05/17 01/05/17 12:37 12:38 12:39 Temperature Pulse Rate 86 81 80 Respiratory Rate Blood Pressure 110/56 O2 Sat by Pulse 94 95 Oximetry 01/05/17 01/05/17 01/05/17 12:40 12:42 12:44 Temperature Pulse Rate 75 81 76 Respiratory Rate Blood Pressure 112/55 102/53 98/55 O2 Sat by Pulse 93 Oximetry 01/05/17 01/05/17 01/05/17 12:46 12:48 12:49 Temperature Pulse Rate 78 76 80 Respiratory Rate Blood Pressure 103/62 115/56 O2 Sat by Pulse 92 Oximetry 01/05/17 01/05/17 01/05/17 12:50 12:52 12:54 Temperature Pulse Rate 73 75 76 Respiratory Rate Blood Pressure 113/57 117/64 119/65 O2 Sat by Pulse 93 97 Oximetry 01/05/17 01/05/17 01/05/17 12:56 12:58 12:59 Temperature Pulse Rate 74 75 74 Respiratory Rate Blood Pressure 117/62 120/60 O2 Sat by Pulse 94 88 Oximetry 01/05/17 01/05/17 01/05/17 13:00 13:02 13:04 Temperature Pulse Rate 77 76 79 Respiratory Rate Blood Pressure 118/59 131/67 125/64 O2 Sat by Pulse 91 Oximetry 01/05/17 01/05/17 01/05/17 13:06 13:08 13:09 Temperature Pulse Rate 82 78 79 Respiratory Rate Blood Pressure 129/69 127/62 O2 Sat by Pulse 94 Oximetry 01/05/17 01/05/17 01/05/17 13:10 13:12 13:14 Temperature Pulse Rate 83 83 80 Respiratory Rate Blood Pressure 127/61 134/66 123/64 O2 Sat by Pulse 92 Oximetry 01/05/17 01/05/17 01/05/17 13:16 13:18 13:19 Temperature Pulse Rate 82 82 83 Respiratory Rate Blood Pressure 124/62 119/58 O2 Sat by Pulse 97 Oximetry 01/05/17 01/05/17 01/05/17 13:20 13:22 13:24 Temperature Pulse Rate 80 87 77 Respiratory Rate Blood Pressure 120/60 117/56 122/58 O2 Sat by Pulse 94 97 Oximetry 01/05/17 01/05/1717 13:26 13:28 13:29 Temperature Pulse Rate 82 75 77 Respiratory Rate Blood Pressure 115/59 113/57 O2 Sat by Pulse 97 Oximetry 01/05/17 01/05/17 01/05/17 13:34 13:39 13:44 Temperature Pulse Rate 81 82 84 Respiratory Rate Blood Pressure O2 Sat by Pulse 95 96 98 Oximetry 01/05/17 01/05/17 01/05/17 13:49 13:55 13:59 Temperature Pulse Rate 85 90 93 H Respiratory Rate Blood Pressure 133/61 O2 Sat by Pulse 94 98 Oximetry 01/05/17 01/05/17 01/05/17 14:01 14:06 14:11 Temperature Pulse Rate 91 H 84 87 Respiratory Rate Blood Pressure O2 Sat by Pulse 96 97 99 Oximetry 01/05/17 01/05/17 01/05/17 14:16 14:27 14:29 Temperature Pulse Rate 84 87 100 H Respiratory Rate Blood Pressure 135/72 126/68 O2 Sat by Pulse 100 Oximetry 01/05/17 01/05/17 01/05/17 15:01 15:30 16:00 Temperature Pulse Rate 97 H 88 88 Respiratory Rate Blood Pressure 116/55 118/55 115/55 O2 Sat by Pulse Oximetry 01/05/17 01/05/17 01/05/17 16:29 16:59 17:16 Temperature Pulse Rate 90 83 88 Respiratory Rate Blood Pressure 117/59 98/55 O2 Sat by Pulse 94 Oximetry 01/05/17 01/05/17 01/05/17 17:21 17:22 17:26 Temperature Pulse Rate 87 91 H 89 Respiratory Rate Blood Pressure O2 Sat by Pulse 95 94 94 Oximetry 01/05/17 01/05/17 01/05/17 17:29 17:31 17:36 Temperature Pulse Rate 88 87 92 H Respiratory Rate Blood Pressure 132/75 O2 Sat by Pulse 93 97 Oximetry 01/05/17 01/05/17 01/05/17 17:39 17:42 17:47 Temperature Pulse Rate 100 H 87 85 Respiratory Rate Blood Pressure O2 Sat by Pulse 94 98 99 Oximetry 01/05/17 01/05/17 01/05/17 17:52 17:57 18:00 Temperature Pulse Rate 88 100 H 87 Respiratory Rate Blood Pressure 137/78 O2 Sat by Pulse 97 97 Oximetry 01/05/17 01/05/17 01/05/17 18:02 18:07 18:12 Temperature Pulse Rate 92 H 104 H 86 Respiratory Rate Blood Pressure O2 Sat by Pulse 97 98 98 Oximetry 01/05/17 01/05/17 01/05/17 18:17 18:22 18:29 Temperature Pulse Rate 90 91 H 89 Respiratory Rate Blood Pressure 145/86 O2 Sat by Pulse 99 98 Oximetry 01/05/17 18:59 Temperature Pulse Rate 91 H Respiratory Rate Blood Pressure 128/65 O2 Sat by Pulse Oximetry - Exam Breasts: normal Cardiovascular: Regular rate Lungs: Clear to auscultation, Normal air movement Abdomen: Present: normal appearance, soft FHR: auscultation normal, category 2 Uterine Contraction Monitor Mode: Internal Cervical Dilatation: 5.5 Cervical Effacement Percentage: 100 station: 0 Uterine Contraction Frequency (min): 2-3 Uterine Contraction Pattern: Regular Uterine Tone Measurement Phase: Contraction Uterine Contraction Intensity: Strong/Firm Extremities: normal - Labs Labs: Abnormal Labs 01/02/17 01/02/17 00:10 09:44 RBC 3.56 L Creatinine 0.5 L Albumin 3.5 L Laboratory Results - last 24 hr 01/05/17 01/05/17 12:52 12:56 POC ABG pH TNR TNR POC ABG pCO2 TNR TNR POC ABG pO2 TNR TNR POC ABG HCO3 TNR TNR POC ABG Total CO2 TNR TNR POC ABG O2 Sat TNR TNR POC ABG Base Excess TNR TNR FiO2 TNR TNR
[2017-01-05] MEDS ORDERED: BICITRA ONE (20:30)
[2017-01-05] MEDS ORDERED: BICITRA PO ONE ×2 (20:32→23:04)
--- NOTE | 2017-01-05 20:36 | Progress Note ---
Assessment and Plan FHT tolerating labor, utilizing frequent position changes. Pitocin continues to infuse @ 36. Anticipate . Dr. Guerrero updated. - Patient Problems (1) 37 weeks gestation of Current Visit: Yes Status: Acute (2) Carrier of group B Streptococcus Current Visit: Yes Status: Acute Plan to address problem: two doses administered (3) Chronic hypertension with superimposed pre-eclampsia Current Visit: Yes Status: Acute Plan to address problem: blood pressure remain normal no JIMENEZ, visual changes or epigastric pain. will hold mag for normal b/p's per Dr. Guerrero. Subjective - Subjective Date of service: 01/05/17 Principal diagnosis: IUP 37+4, pre-e IOL day #4 Patient reports: new complaints (rectal pressure and heart burn), loss of fluid , movement normal, other (comfortable with epidural), no vaginal bleeding Objective - Vital Signs Vital Signs: Vital Signs - 12hr 01/05/17 01/05/17 01/05/17 08:46 08:51 08:53 Temperature Pulse Rate 89 105 H 91 H Respiratory Rate Blood Pressure 108/55 O2 Sat by Pulse 96 97 Oximetry 01/05/17 01/05/17 01/05/17 08:56 09:01 09:04 Temperature 98.1 F Pulse Rate 92 H 88 85 Respiratory 18 Rate Blood Pressure 105/55 O2 Sat by Pulse 97 97 94 Oximetry 01/05/17 01/05/17 01/05/17 09:06 09:10 09:11 Temperature Pulse Rate 88 84 78 Respiratory Rate Blood Pressure O2 Sat by Pulse 95 94 92 Oximetry 01/05/17 01/05/17 01/05/17 09:16 09:21 09:25 Temperature Pulse Rate 79 80 82 Respiratory Rate Blood Pressure 127/72 O2 Sat by Pulse 94 94 Oximetry 01/05/17 01/05/17 01/05/17 09:26 09:31 09:33 Temperature Pulse Rate 93 H 96 H 91 H Respiratory Rate Blood Pressure O2 Sat by Pulse 97 96 94 Oximetry 01/05/17 01/05/17 01/05/17 09:36 09:40 09:41 Temperature Pulse Rate 89 86 87 Respiratory Rate Blood Pressure O2 Sat by Pulse 95 94 97 Oximetry 01/05/17 01/05/17 01/05/17 09:46 09:47 09:51 Temperature Pulse Rate 88 83 85 Respiratory Rate Blood Pressure O2 Sat by Pulse 95 94 94 Oximetry 01/05/17 01/05/17 01/05/17 09:52 09:53 09:56 Temperature Pulse Rate 90 82 89 Respiratory Rate Blood Pressure 113/57 O2 Sat by Pulse 94 95 Oximetry 01/05/17 01/05/17 01/05/17 09:58 10:01 10:04 Temperature Pulse Rate 91 H 91 H 90 Respiratory Rate Blood Pressure O2 Sat by Pulse 94 95 94 Oximetry 01/05/17 01/05/17 01/05/17 10:06 10:10 10:11 Temperature Pulse Rate 90 84 93 H Respiratory Rate Blood Pressure O2 Sat by Pulse 94 94 97 Oximetry 01/05/17 01/05/17 01/05/17 10:16 10:21 10:24 Temperature Pulse Rate 89 110 H 84 Respiratory Rate Blood Pressure 116/55 O2 Sat by Pulse 94 97 Oximetry 01/05/17 01/05/17 01/05/17 10:53 11:24 11:53 Temperature Pulse Rate 96 H 88 90 Respiratory Rate Blood Pressure 129/61 128/60 150/66 O2 Sat by Pulse Oximetry 01/05/17 01/05/17 01/05/17 11:54 11:59 12:04 Temperature Pulse Rate 95 H 93 H 93 H Respiratory Rate Blood Pressure O2 Sat by Pulse 96 98 97 Oximetry 01/05/17 01/05/17 01/05/17 12:06 12:09 12:10 Temperature Pulse Rate 87 93 H 88 Respiratory Rate Blood Pressure 139/65 125/55 O2 Sat by Pulse 98 Oximetry 01/05/17 01/05/17 01/05/17 12:12 12:14 12:16 Temperature Pulse Rate 88 82 83 Respiratory Rate Blood Pressure 128/58 120/59 122/58 O2 Sat by Pulse 97 Oximetry 01/05/17 01/05/17 01/05/17 12:18 12:19 12:20 Temperature Pulse Rate 91 H 88 88 Respiratory Rate Blood Pressure 122/60 130/58 O2 Sat by Pulse 86 Oximetry 01/05/17 01/05/17 01/05/17 12:22 12:24 12:26 Temperature Pulse Rate 96 H 87 90 Respiratory Rate Blood Pressure 117/58 119/57 121/61 O2 Sat by Pulse 97 Oximetry 01/05/17 01/05/17 01/05/17 12:28 12:29 12:30 Temperature Pulse Rate 86 87 84 Respiratory Rate Blood Pressure 115/56 121/55 O2 Sat by Pulse 97 Oximetry 01/05/17 01/05/17 01/05/17 12:32 12:34 12:36 Temperature Pulse Rate 87 83 85 Respiratory Rate Blood Pressure 122/59 99/55 110/59 O2 Sat by Pulse 96 Oximetry 01/05/17 01/05/17 01/05/17 12:37 12:38 12:39 Temperature Pulse Rate 86 81 80 Respiratory Rate Blood Pressure 110/56 O2 Sat by Pulse 94 95 Oximetry 01/05/17 01/05/17 01/05/17 12:40 12:42 12:44 Temperature Pulse Rate 75 81 76 Respiratory Rate Blood Pressure 112/55 102/53 98/55 O2 Sat by Pulse 93 Oximetry 01/05/17 01/05/17 01/05/17 12:46 12:48 12:49 Temperature Pulse Rate 78 76 80 Respiratory Rate Blood Pressure 103/62 115/56 O2 Sat by Pulse 92 Oximetry 01/05/17 01/05/17 01/05/17 12:50 12:52 12:54 Temperature Pulse Rate 73 75 76 Respiratory Rate Blood Pressure 113/57 117/64 119/65 O2 Sat by Pulse 93 97 Oximetry 01/05/17 01/05/17 01/05/17 12:56 12:58 12:59 Temperature Pulse Rate 74 75 74 Respiratory Rate Blood Pressure 117/62 120/60 O2 Sat by Pulse 94 88 Oximetry 01/05/17 01/05/17 01/05/17 13:00 13:02 13:04 Temperature Pulse Rate 77 76 79 Respiratory Rate Blood Pressure 118/59 131/67 125/64 O2 Sat by Pulse 91 Oximetry 01/05/17 01/05/17 01/05/17 13:06 13:08 13:09 Temperature Pulse Rate 82 78 79 Respiratory Rate Blood Pressure 129/69 127/62 O2 Sat by Pulse 94 Oximetry 01/05/17 01/05/17 01/05/17 13:10 13:12 13:14 Temperature Pulse Rate 83 83 80 Respiratory Rate Blood Pressure 127/61 134/66 123/64 O2 Sat by Pulse 92 Oximetry 01/05/17 01/05/17 01/05/17 13:16 13:18 13:19 Temperature Pulse Rate 82 82 83 Respiratory Rate Blood Pressure 124/62 119/58 O2 Sat by Pulse 97 Oximetry 01/05/17 01/05/17 01/05/17 13:20 13:22 13:24 Temperature Pulse Rate 80 87 77 Respiratory Rate Blood Pressure 120/60 117/56 122/58 O2 Sat by Pulse 94 97 Oximetry 01/05/17 01/05/17 01/05/17 13:26 13:28 13:29 Temperature Pulse Rate 82 75 77 Respiratory Rate Blood Pressure 115/59 113/57 O2 Sat by Pulse 97 Oximetry 01/05/17 01/05/17 01/05/17 13:34 13:39 13:44 Temperature Pulse Rate 81 82 84 Respiratory Rate Blood Pressure O2 Sat by Pulse 95 96 98 Oximetry 01/05/17 01/05/17 01/05/17 13:49 13:55 13:59 Temperature Pulse Rate 85 90 93 H Respiratory Rate Blood Pressure 133/61 O2 Sat by Pulse 94 98 Oximetry 01/05/17 01/05/17 01/05/17 14:01 14:06 14:11 Temperature Pulse Rate 91 H 84 87 Respiratory Rate Blood Pressure O2 Sat by Pulse 96 97 99 Oximetry 01/05/17 01/05/17 01/05/17 14:16 14:27 14:29 Temperature Pulse Rate 84 87 100 H Respiratory Rate Blood Pressure 135/72 126/68 O2 Sat by Pulse 100 Oximetry 01/05/17 01/05/17 01/05/17 15:01 15:30 16:00 Temperature Pulse Rate 97 H 88 88 Respiratory Rate Blood Pressure 116/55 118/55 115/55 O2 Sat by Pulse Oximetry 01/05/17 01/05/17 01/05/17 16:29 16:59 17:16 Temperature Pulse Rate 90 83 88 Respiratory Rate Blood Pressure 117/59 98/55 O2 Sat by Pulse 94 Oximetry 01/05/17 01/05/17 01/05/17 17:21 17:22 17:26 Temperature Pulse Rate 87 91 H 89 Respiratory Rate Blood Pressure O2 Sat by Pulse 95 94 94 Oximetry 01/05/17 01/05/17 01/05/17 17:29 17:31 17:36 Temperature Pulse Rate 88 87 92 H Respiratory Rate Blood Pressure 132/75 O2 Sat by Pulse 93 97 Oximetry 01/05/17 01/05/17 01/05/17 17:39 17:42 17:47 Temperature Pulse Rate 100 H 87 85 Respiratory Rate Blood Pressure O2 Sat by Pulse 94 98 99 Oximetry 01/05/17 01/05/17 01/05/17 17:52 17:57 18:00 Temperature Pulse Rate 88 100 H 87 Respiratory Rate Blood Pressure 137/78 O2 Sat by Pulse 97 97 Oximetry 01/05/17 01/05/17 01/05/17 18:02 18:07 18:12 Temperature Pulse Rate 92 H 104 H 86 Respiratory Rate Blood Pressure O2 Sat by Pulse 97 98 98 Oximetry 01/05/17 01/05/17 01/05/17 18:17 18:22 18:29 Temperature Pulse Rate 90 91 H 89 Respiratory Rate Blood Pressure 145/86 O2 Sat by Pulse 99 98 Oximetry 01/05/17 01/05/17 01/05/17 18:59 19:29 19:36 Temperature Pulse Rate 91 H 92 H 101 H Respiratory Rate Blood Pressure 128/65 118/58 O2 Sat by Pulse 99 Oximetry 01/05/17 01/05/17 01/05/17 19:40 19:41 19:46 Temperature 97.7 F Pulse Rate 98 H 108 H 95 H Respiratory 18 Rate Blood Pressure 118/58 O2 Sat by Pulse 99 100 100 Oximetry 01/05/17 01/05/17 01/05/17 19:51 19:56 20:00 Temperature Pulse Rate 100 H 99 H 100 H Respiratory Rate Blood Pressure 121/59 O2 Sat by Pulse 99 98 Oximetry 01/05/17 01/05/17 01/05/17 20:01 20:06 20:11 Temperature Pulse Rate 98 H 107 H 108 H Respiratory Rate Blood Pressure O2 Sat by Pulse 98 99 99 Oximetry 01/05/17 01/05/17 01/05/17 20:16 20:21 20:26 Temperature Pulse Rate 101 H 107 H 97 H Respiratory Rate Blood Pressure O2 Sat by Pulse 94 98 98 Oximetry - Exam Breasts: normal Cardiovascular: Regular rate Lungs: Clear to auscultation, Normal air movement Abdomen: Present: normal appearance Vulva: both: normal Uterus: Present: normal FHR: category 2 Uterine Contraction Monitor Mode: Internal Cervical Dilatation: 7 Cervical Effacement Percentage: 100 station: 0 Uterine Contraction Frequency (min): 2-3 Uterine Contraction Duration: 60 Uterine Contraction Pattern: Regular Uterine Tone Measurement Phase: Contraction Uterine Contraction Intensity: Strong/Firm Extremities: normal Deep Tendon Reflex Grade: Normal +2 - Labs Labs: Abnormal Labs 01/02/17 01/02/17 00:10 09:44 RBC 3.56 L Creatinine 0.5 L Albumin 3.5 L Laboratory Results - last 24 hr 01/05/17 01/05/17 12:52 12:56 POC ABG pH TNR TNR POC ABG pCO2 TNR TNR POC ABG pO2 TNR TNR POC ABG HCO3 TNR TNR POC ABG Total CO2 TNR TNR POC ABG O2 Sat TNR TNR POC ABG Base Excess TNR TNR FiO2 TNR TNR
[2017-01-05] MEDS ORDERED: XYLOCAINE 2% INFILTRATI ONE (21:54)
[2017-01-05] MEDS ORDERED: CYTOTEC ONE (22:53)
--- NOTE | 2017-01-05 23:03 | Progress Note ---
Assessment and Plan no significant cervical change in last 2 hours. head asynclitic to maternal left side, cervix remains on maternal right and is now swelling. patient c/o pain even after anesthesia rebolus of epidural. patient requesting c /s. Dr. Guerrero notified. - Patient Problems (1) 37 weeks gestation of Current Visit: Yes Status: Acute (2) Carrier of group B Streptococcus Current Visit: Yes Status: Acute (3) Chronic hypertension with superimposed pre-eclampsia Current Visit: Yes Status: Acute Subjective - Subjective Date of service: 01/05/17 Principal diagnosis: IUP 37+4, pre-e IOL day #4 Patient reports: new complaints (rectal pressure and heart burn), loss of fluid , movement normal, other (comfortable with epidural), no vaginal bleeding Objective - Vital Signs Vital Signs: Vital Signs - 12hr 01/05/17 01/05/17 01/05/17 11:24 11:53 11:54 Temperature Pulse Rate 88 90 95 H Respiratory Rate Blood Pressure 128/60 150/66 O2 Sat by Pulse 96 Oximetry 01/05/17 01/05/17 01/05/17 11:59 12:04 12:06 Temperature Pulse Rate 93 H 93 H 87 Respiratory Rate Blood Pressure 139/65 O2 Sat by Pulse 98 97 Oximetry 01/05/17 01/05/17 01/05/17 12:09 12:10 12:12 Temperature Pulse Rate 93 H 88 88 Respiratory Rate Blood Pressure 125/55 128/58 O2 Sat by Pulse 98 Oximetry 01/05/17 01/05/17 01/05/17 12:14 12:16 12:18 Temperature Pulse Rate 82 83 91 H Respiratory Rate Blood Pressure 120/59 122/58 122/60 O2 Sat by Pulse 97 Oximetry 01/05/17 01/05/17 01/05/17 12:19 12:20 12:22 Temperature Pulse Rate 88 88 96 H Respiratory Rate Blood Pressure 130/58 117/58 O2 Sat by Pulse 86 Oximetry 01/05/17 01/05/17 01/05/17 12:24 12:26 12:28 Temperature Pulse Rate 87 90 86 Respiratory Rate Blood Pressure 119/57 121/61 115/56 O2 Sat by Pulse 97 Oximetry 01/05/17 01/05/17 01/05/17 12:29 12:30 12:32 Temperature Pulse Rate 87 84 87 Respiratory Rate Blood Pressure 121/55 122/59 O2 Sat by Pulse 97 Oximetry 01/05/17 01/05/17 01/05/17 12:34 12:36 12:37 Temperature Pulse Rate 83 85 86 Respiratory Rate Blood Pressure 99/55 110/59 O2 Sat by Pulse 96 94 Oximetry 01/05/17 01/05/17 01/05/17 12:38 12:39 12:40 Temperature Pulse Rate 81 80 75 Respiratory Rate Blood Pressure 110/56 112/55 O2 Sat by Pulse 95 Oximetry 01/05/17 01/05/17 01/05/17 12:42 12:44 12:46 Temperature Pulse Rate 81 76 78 Respiratory Rate Blood Pressure 102/53 98/55 103/62 O2 Sat by Pulse 93 Oximetry 01/05/17 01/05/17 01/05/17 12:48 12:49 12:50 Temperature Pulse Rate 76 80 73 Respiratory Rate Blood Pressure 115/56 113/57 O2 Sat by Pulse 92 93 Oximetry 01/05/17 01/05/17 01/05/17 12:52 12:54 12:56 Temperature Pulse Rate 75 76 74 Respiratory Rate Blood Pressure 117/64 119/65 117/62 O2 Sat by Pulse 97 94 Oximetry 01/05/17 01/05/17 01/05/17 12:58 12:59 13:00 Temperature Pulse Rate 75 74 77 Respiratory Rate Blood Pressure 120/60 118/59 O2 Sat by Pulse 88 Oximetry 01/05/17 01/05/17 01/05/17 13:02 13:04 13:06 Temperature Pulse Rate 76 79 82 Respiratory Rate Blood Pressure 131/67 125/64 129/69 O2 Sat by Pulse 91 Oximetry 01/05/17 01/05/17 01/05/17 13:08 13:09 13:10 Temperature Pulse Rate 78 79 83 Respiratory Rate Blood Pressure 127/62 127/61 O2 Sat by Pulse 94 Oximetry 01/05/17 01/05/17 01/05/17 13:12 13:14 13:16 Temperature Pulse Rate 83 80 82 Respiratory Rate Blood Pressure 134/66 123/64 124/62 O2 Sat by Pulse 92 Oximetry 01/05/17 01/05/17 01/05/17 13:18 13:19 13:20 Temperature Pulse Rate 82 83 80 Respiratory Rate Blood Pressure 119/58 120/60 O2 Sat by Pulse 97 Oximetry 01/05/17 01/05/17 01/05/17 13:22 13:24 13:26 Temperature Pulse Rate 87 77 82 Respiratory Rate Blood Pressure 117/56 122/58 115/59 O2 Sat by Pulse 94 97 Oximetry 01/05/17 01/05/17 01/05/17 13:28 13:29 13:34 Temperature Pulse Rate 75 77 81 Respiratory Rate Blood Pressure 113/57 O2 Sat by Pulse 97 95 Oximetry 01/05/17 01/05/17 01/05/17 13:39 13:44 13:49 Temperature Pulse Rate 82 84 85 Respiratory Rate Blood Pressure O2 Sat by Pulse 96 98 94 Oximetry 01/05/17 01/05/17 01/05/17 13:55 13:59 14:01 Temperature Pulse Rate 90 93 H 91 H Respiratory Rate Blood Pressure 133/61 O2 Sat by Pulse 98 96 Oximetry 01/05/17 01/05/17 01/05/17 14:06 14:11 14:16 Temperature Pulse Rate 84 87 84 Respiratory Rate Blood Pressure O2 Sat by Pulse 97 99 100 Oximetry 01/05/17 01/05/17 01/05/17 14:27 14:29 15:01 Temperature Pulse Rate 87 100 H 97 H Respiratory Rate Blood Pressure 135/72 126/68 116/55 O2 Sat by Pulse Oximetry 01/05/17 01/05/17 01/05/17 15:30 16:00 16:29 Temperature Pulse Rate 88 88 90 Respiratory Rate Blood Pressure 118/55 115/55 117/59 O2 Sat by Pulse Oximetry 01/05/17 01/05/17 01/05/17 16:59 17:16 17:21 Temperature Pulse Rate 83 88 87 Respiratory Rate Blood Pressure 98/55 O2 Sat by Pulse 94 95 Oximetry 01/05/17 01/05/17 01/05/17 17:22 17:26 17:29 Temperature Pulse Rate 91 H 89 88 Respiratory Rate Blood Pressure 132/75 O2 Sat by Pulse 94 94 Oximetry 01/05/17 01/05/17 01/05/17 17:31 17:36 17:39 Temperature Pulse Rate 87 92 H 100 H Respiratory Rate Blood Pressure O2 Sat by Pulse 93 97 94 Oximetry 01/05/17 01/05/17 01/05/17 17:42 17:47 17:52 Temperature Pulse Rate 87 85 88 Respiratory Rate Blood Pressure O2 Sat by Pulse 98 99 97 Oximetry 01/05/17 01/05/17 01/05/17 17:57 18:00 18:02 Temperature Pulse Rate 100 H 87 92 H Respiratory Rate Blood Pressure 137/78 O2 Sat by Pulse 97 97 Oximetry 01/05/17 01/05/17 01/05/17 18:07 18:12 18:17 Temperature Pulse Rate 104 H 86 90 Respiratory Rate Blood Pressure O2 Sat by Pulse 98 98 99 Oximetry 01/05/17 01/05/17 01/05/17 18:22 18:29 18:59 Temperature Pulse Rate 91 H 89 91 H Respiratory Rate Blood Pressure 145/86 128/65 O2 Sat by Pulse 98 Oximetry 01/05/17 01/05/17 01/05/17 19:29 19:36 19:40 Temperature 97.7 F Pulse Rate 92 H 101 H 98 H Respiratory 18 Rate Blood Pressure 118/58 118/58 O2 Sat by Pulse 99 99 Oximetry 01/05/17 01/05/17 01/05/17 19:41 19:46 19:51 Temperature Pulse Rate 108 H 95 H 100 H Respiratory Rate Blood Pressure O2 Sat by Pulse 100 100 99 Oximetry 01/05/17 01/05/17 01/05/17 19:56 20:00 20:01 Temperature Pulse Rate 99 H 100 H 98 H Respiratory Rate Blood Pressure 121/59 O2 Sat by Pulse 98 98 Oximetry 01/05/17 01/05/17 01/05/17 20:06 20:11 20:16 Temperature Pulse Rate 107 H 108 H 101 H Respiratory Rate Blood Pressure O2 Sat by Pulse 99 99 94 Oximetry 01/05/17 01/05/17 01/05/17 20:21 20:26 20:31 Temperature Pulse Rate 107 H 97 H 99 H Respiratory Rate Blood Pressure 151/92 O2 Sat by Pulse 98 98 96 Oximetry 01/05/17 01/05/17 01/05/17 20:36 20:39 20:41 Temperature Pulse Rate 94 H 91 H 92 H Respiratory Rate Blood Pressure O2 Sat by Pulse 98 94 98 Oximetry 01/05/17 01/05/17 01/05/17 20:45 20:46 20:51 Temperature Pulse Rate 99 H 107 H 116 H Respiratory Rate Blood Pressure O2 Sat by Pulse 94 94 96 Oximetry 01/05/17 01/05/17 01/05/17 20:56 21:00 21:01 Temperature Pulse Rate 105 H 92 H 98 H Respiratory Rate Blood Pressure 151/88 O2 Sat by Pulse 94 97 Oximetry 01/05/17 01/05/17 01/05/17 21:06 21:11 21:16 Temperature Pulse Rate 102 H 111 H 102 H Respiratory Rate Blood Pressure O2 Sat by Pulse 97 98 94 Oximetry 01/05/17 01/05/17 01/05/17 21:21 21:26 21:29 Temperature Pulse Rate 105 H 100 H 96 H Respiratory Rate Blood Pressure 146/94 O2 Sat by Pulse 98 97 Oximetry 01/05/17 01/05/17 01/05/17 21:31 21:34 21:36 Temperature Pulse Rate 99 H 106 H 97 H Respiratory Rate Blood Pressure O2 Sat by Pulse 97 94 97 Oximetry 01/05/17 01/05/17 01/05/17 21:41 21:46 21:51 Temperature Pulse Rate 107 H 105 H 106 H Respiratory Rate Blood Pressure O2 Sat by Pulse 98 98 98 Oximetry 01/05/17 01/05/17 01/05/17 21:56 22:00 22:01 Temperature Pulse Rate 101 H 100 H 107 H Respiratory Rate Blood Pressure 167/82 O2 Sat by Pulse 99 97 Oximetry 01/05/17 01/05/17 01/05/17 22:06 22:11 22:16 Temperature Pulse Rate 110 H 116 H 104 H Respiratory Rate Blood Pressure O2 Sat by Pulse 98 97 98 Oximetry 01/05/17 01/05/17 01/05/17 22:21 22:26 22:27 Temperature Pulse Rate 101 H 107 H 99 H Respiratory Rate Blood Pressure O2 Sat by Pulse 97 97 94 Oximetry 01/05/17 01/05/17 01/05/17 22:31 22:36 22:41 Temperature Pulse Rate 99 H 109 H 105 H Respiratory Rate Blood Pressure O2 Sat by Pulse 95 98 97 Oximetry - Exam Breasts: normal Cardiovascular: Regular rate Lungs: Clear to auscultation Abdomen: Present: normal appearance, soft Vulva: both: normal Uterus: Present: normal FHR: auscultation normal Uterine Contraction Monitor Mode: External Cervical Dilatation: 7 (all on maternal right side, cervix now swelling. head asynclitic) Cervical Effacement Percentage: 80 station: 0 Uterine Contraction Frequency (min): 2-4 Uterine Contraction Duration: 60 Uterine Contraction Pattern: Regular Uterine Tone Measurement Phase: Contraction Uterine Contraction Intensity: Strong/Firm - Labs Labs: Abnormal Labs 01/02/17 01/02/17 00:10 09:44 RBC 3.56 L Creatinine 0.5 L Albumin 3.5 L Laboratory Results - last 24 hr 01/05/17 01/05/17 12:52 12:56 POC ABG pH TNR TNR POC ABG pCO2 TNR TNR POC ABG pO2 TNR TNR POC ABG HCO3 TNR TNR POC ABG Total CO2 TNR TNR POC ABG O2 Sat TNR TNR POC ABG Base Excess TNR TNR FiO2 TNR TNR
[2017-01-05] MEDS ORDERED: REGLAN IV ONE (23:04)
[2017-01-05] MEDS ORDERED: PEPCID IV ONE (23:04)
[2017-01-05] MEDS ORDERED: ANCEF/STERILE WATER 2 GM/20 ML 2 GM/20 ML SYRINGE IV NR (23:45)
[2017-01-06] MEDS ORDERED: WATER FOR IRRIG STERILE IR ONE (00:15)
[2017-01-06] MEDS ORDERED: NACL 0.9% IR ONE (00:15)
--- NOTE | 2017-01-06 00:15 | Progress Note ---
Subjective - Subjective Principal diagnosis: IUP 37+4, pre-e IOL day #4 Interval history: Pt remains 9 cm with cx sweling and vertex at -2, she cannot push through cervix. Has had adequate labor since early this afternoon after SROM this AM, Pitocin has been at 32. Feel c/s is now indicated for failure of dilation and descent. Discussed with patient who agrees with c/s at this time also. Patient reports: new complaints (rectal pressure and heart burn), loss of fluid , movement normal, other (comfortable with epidural), no vaginal bleeding Objective - Vital Signs Vital Signs: Vital Signs - 12hr 01/05/17 01/05/17 01/05/17 12:14 12:16 12:18 Temperature Pulse Rate 82 83 91 H Respiratory Rate Blood Pressure 120/59 122/58 122/60 O2 Sat by Pulse 97 Oximetry 01/05/17 01/05/17 01/05/17 12:19 12:20 12:22 Temperature Pulse Rate 88 88 96 H Respiratory Rate Blood Pressure 130/58 117/58 O2 Sat by Pulse 86 Oximetry 01/05/17 01/05/17 01/05/17 12:24 12:26 12:28 Temperature Pulse Rate 87 90 86 Respiratory Rate Blood Pressure 119/57 121/61 115/56 O2 Sat by Pulse 97 Oximetry 01/05/17 01/05/17 01/05/17 12:29 12:30 12:32 Temperature Pulse Rate 87 84 87 Respiratory Rate Blood Pressure 121/55 122/59 O2 Sat by Pulse 97 Oximetry 01/05/17 01/05/17 01/05/17 12:34 12:36 12:37 Temperature Pulse Rate 83 85 86 Respiratory Rate Blood Pressure 99/55 110/59 O2 Sat by Pulse 96 94 Oximetry 01/05/17 01/05/17 01/05/17 12:38 12:39 12:40 Temperature Pulse Rate 81 80 75 Respiratory Rate Blood Pressure 110/56 112/55 O2 Sat by Pulse 95 Oximetry 01/05/17 01/05/17 01/05/17 12:42 12:44 12:46 Temperature Pulse Rate 81 76 78 Respiratory Rate Blood Pressure 102/53 98/55 103/62 O2 Sat by Pulse 93 Oximetry 01/05/17 01/05/17 01/05/17 12:48 12:49 12:50 Temperature Pulse Rate 76 80 73 Respiratory Rate Blood Pressure 115/56 113/57 O2 Sat by Pulse 92 93 Oximetry 01/05/17 01/05/17 01/05/17 12:52 12:54 12:56 Temperature Pulse Rate 75 76 74 Respiratory Rate Blood Pressure 117/64 119/65 117/62 O2 Sat by Pulse 97 94 Oximetry 01/05/17 01/05/17 01/05/17 12:58 12:59 13:00 Temperature Pulse Rate 75 74 77 Respiratory Rate Blood Pressure 120/60 118/59 O2 Sat by Pulse 88 Oximetry 01/05/17 01/05/17 01/05/17 13:02 13:04 13:06 Temperature Pulse Rate 76 79 82 Respiratory Rate Blood Pressure 131/67 125/64 129/69 O2 Sat by Pulse 91 Oximetry 01/05/17 01/05/17 01/05/17 13:08 13:09 13:10 Temperature Pulse Rate 78 79 83 Respiratory Rate Blood Pressure 127/62 127/61 O2 Sat by Pulse 94 Oximetry 01/05/17 01/05/17 01/05/17 13:12 13:14 13:16 Temperature Pulse Rate 83 80 82 Respiratory Rate Blood Pressure 134/66 123/64 124/62 O2 Sat by Pulse 92 Oximetry 01/05/17 01/05/17 01/05/17 13:18 13:19 13:20 Temperature Pulse Rate 82 83 80 Respiratory Rate Blood Pressure 119/58 120/60 O2 Sat by Pulse 97 Oximetry 01/05/17 01/05/17 01/05/17 13:22 13:24 13:26 Temperature Pulse Rate 87 77 82 Respiratory Rate Blood Pressure 117/56 122/58 115/59 O2 Sat by Pulse 94 97 Oximetry 01/05/17 01/05/17 01/05/17 13:28 13:29 13:34 Temperature Pulse Rate 75 77 81 Respiratory Rate Blood Pressure 113/57 O2 Sat by Pulse 97 95 Oximetry 01/05/17 01/05/17 01/05/17 13:39 13:44 13:49 Temperature Pulse Rate 82 84 85 Respiratory Rate Blood Pressure O2 Sat by Pulse 96 98 94 Oximetry 01/05/17 01/05/17 01/05/17 13:55 13:59 14:01 Temperature Pulse Rate 90 93 H 91 H Respiratory Rate Blood Pressure 133/61 O2 Sat by Pulse 98 96 Oximetry 01/05/17 01/05/17 01/05/17 14:06 14:11 14:16 Temperature Pulse Rate 84 87 84 Respiratory Rate Blood Pressure O2 Sat by Pulse 97 99 100 Oximetry 01/05/17 01/05/17 01/05/17 14:27 14:29 15:01 Temperature Pulse Rate 87 100 H 97 H Respiratory Rate Blood Pressure 135/72 126/68 116/55 O2 Sat by Pulse Oximetry 01/05/17 01/05/17 01/05/17 15:30 16:00 16:29 Temperature Pulse Rate 88 88 90 Respiratory Rate Blood Pressure 118/55 115/55 117/59 O2 Sat by Pulse Oximetry 01/05/17 01/05/17 01/05/17 16:59 17:16 17:21 Temperature Pulse Rate 83 88 87 Respiratory Rate Blood Pressure 98/55 O2 Sat by Pulse 94 95 Oximetry 01/05/17 01/05/17 01/05/17 17:22 17:26 17:29 Temperature Pulse Rate 91 H 89 88 Respiratory Rate Blood Pressure 132/75 O2 Sat by Pulse 94 94 Oximetry 01/05/17 01/05/17 01/05/17 17:31 17:36 17:39 Temperature Pulse Rate 87 92 H 100 H Respiratory Rate Blood Pressure O2 Sat by Pulse 93 97 94 Oximetry 01/05/17 01/05/17 01/05/17 17:42 17:47 17:52 Temperature Pulse Rate 87 85 88 Respiratory Rate Blood Pressure O2 Sat by Pulse 98 99 97 Oximetry 01/05/17 01/05/17 01/05/17 17:57 18:00 18:02 Temperature Pulse Rate 100 H 87 92 H Respiratory Rate Blood Pressure 137/78 O2 Sat by Pulse 97 97 Oximetry 01/05/17 01/05/17 01/05/17 18:07 18:12 18:17 Temperature Pulse Rate 104 H 86 90 Respiratory Rate Blood Pressure O2 Sat by Pulse 98 98 99 Oximetry 01/05/17 01/05/17 01/05/17 18:22 18:29 18:59 Temperature Pulse Rate 91 H 89 91 H Respiratory Rate Blood Pressure 145/86 128/65 O2 Sat by Pulse 98 Oximetry 01/05/17 01/05/17 01/05/17 19:29 19:36 19:40 Temperature 97.7 F Pulse Rate 92 H 101 H 98 H Respiratory 18 Rate Blood Pressure 118/58 118/58 O2 Sat by Pulse 99 99 Oximetry 01/05/17 01/05/17 01/05/17 19:41 19:46 19:51 Temperature Pulse Rate 108 H 95 H 100 H Respiratory Rate Blood Pressure O2 Sat by Pulse 100 100 99 Oximetry 01/05/17 01/05/17 01/05/17 19:56 20:00 20:01 Temperature Pulse Rate 99 H 100 H 98 H Respiratory Rate Blood Pressure 121/59 O2 Sat by Pulse 98 98 Oximetry 01/05/17 01/05/17 01/05/17 20:06 20:11 20:16 Temperature Pulse Rate 107 H 108 H 101 H Respiratory Rate Blood Pressure O2 Sat by Pulse 99 99 94 Oximetry 01/05/17 01/05/17 01/05/17 20:21 20:26 20:31 Temperature Pulse Rate 107 H 97 H 99 H Respiratory Rate Blood Pressure 151/92 O2 Sat by Pulse 98 98 96 Oximetry 01/05/17 01/05/17 01/05/17 20:36 20:39 20:41 Temperature Pulse Rate 94 H 91 H 92 H Respiratory Rate Blood Pressure O2 Sat by Pulse 98 94 98 Oximetry 01/05/17 01/05/17 01/05/17 20:45 20:46 20:51 Temperature Pulse Rate 99 H 107 H 116 H Respiratory Rate Blood Pressure O2 Sat by Pulse 94 94 96 Oximetry 01/05/17 01/05/17 01/05/17 20:56 21:00 21:01 Temperature Pulse Rate 105 H 92 H 98 H Respiratory Rate Blood Pressure 151/88 O2 Sat by Pulse 94 97 Oximetry 01/05/17 01/05/17 01/05/17 21:06 21:11 21:16 Temperature Pulse Rate 102 H 111 H 102 H Respiratory Rate Blood Pressure O2 Sat by Pulse 97 98 94 Oximetry 01/05/17 01/05/17 01/05/17 21:21 21:26 21:29 Temperature Pulse Rate 105 H 100 H 96 H Respiratory Rate Blood Pressure 146/94 O2 Sat by Pulse 98 97 Oximetry 01/05/17 01/05/17 01/05/17 21:31 21:34 21:36 Temperature Pulse Rate 99 H 106 H 97 H Respiratory Rate Blood Pressure O2 Sat by Pulse 97 94 97 Oximetry 01/05/17 01/05/17 01/05/17 21:41 21:46 21:51 Temperature Pulse Rate 107 H 105 H 106 H Respiratory Rate Blood Pressure O2 Sat by Pulse 98 98 98 Oximetry 01/05/17 01/05/17 01/05/17 21:56 22:00 22:01 Temperature Pulse Rate 101 H 100 H 107 H Respiratory Rate Blood Pressure 167/82 O2 Sat by Pulse 99 97 Oximetry 01/05/17 01/05/17 01/05/17 22:06 22:11 22:16 Temperature Pulse Rate 110 H 116 H 104 H Respiratory Rate Blood Pressure O2 Sat by Pulse 98 97 98 Oximetry 01/05/17 01/05/17 01/05/17 22:21 22:26 22:27 Temperature Pulse Rate 101 H 107 H 99 H Respiratory Rate Blood Pressure O2 Sat by Pulse 97 97 94 Oximetry 01/05/17 01/05/17 01/05/17 22:31 22:36 22:41 Temperature Pulse Rate 99 H 109 H 105 H Respiratory Rate Blood Pressure O2 Sat by Pulse 95 98 97 Oximetry 01/05/17 22:59 Temperature Pulse Rate 104 H Respiratory Rate Blood Pressure 138/79 O2 Sat by Pulse Oximetry - Labs Labs: Abnormal Labs 01/02/17 01/02/17 00:10 09:44 RBC 3.56 L Creatinine 0.5 L Albumin 3.5 L Laboratory Results - last 24 hr 01/05/17 01/05/17 12:52 12:56 POC ABG pH TNR TNR POC ABG pCO2 TNR TNR POC ABG pO2 TNR TNR POC ABG HCO3 TNR TNR POC ABG Total CO2 TNR TNR POC ABG O2 Sat TNR TNR POC ABG Base Excess TNR TNR FiO2 TNR TNR
[2017-01-06] MEDS ORDERED: TORADOL ONE (00:30)
[2017-01-06] MEDS ORDERED: MORPHINE ONE ×2 (00:31→00:32)
[2017-01-06] MEDS ORDERED: XYLOCAINE MPF 2% ONE ×4 (00:32)
--- NOTE | 2017-01-06 01:50 | Operative Report ---
Operative Report Operative Report: Date of Procedure: 01/06/2017 Procedure name(s): Primary transverse low segment section Pre-operative diagnosis: Induction of labor at 37 weeks gestation for chronic hypertension and superimposed preeclampsia with normal blood pressures during labor, failure to progress past 9 cm, failure of descent, morbid obesity, advanced maternal age Post-operative diagnosis: Same plus very asynclitic presentation and 5 cm uterine fibroid in the lower uterine segment on the left side Surgeon: Cristina Guerrero M.D. Art Objects Repairer: Anita Fuchs CNM Anesthesia: Epidural EBL: 1000 mL Infant: 6 lbs. 8 oz. (2942 g) female with Apgars of 8 and 9 Time of : 0031 Findings Asynclitic presentation, lower uterine segment fibroid and uterus could not be delivered externally, so an Leonides retractor was used Procedure The patient was taken to the operating room and after adequate anesthesia was obtained she was placed in the supine position in left lateral tilt. Sequential compression devices were in place on both lower extremities and a Lipscomb catheter was placed in a sterile fashion. The abdomen was then prepped and draped in the usual fashion. Surgical time-out was done with the entire OR team attentive. A Pfannenstiel incision was made with a scalpel and sharp dissection was carried down through all layers of the abdomen in the usual fashion. The abdomen was entered bluntly and the lower uterine segment was identified. The presenting part was palpated and a bladder flap was created with the Metzenbaum scissors. The scalpel was used to incise the uterus in a transverse fashion and this incision was extended bluntly with finger traction and the membranes were ruptured. My hand was inserted into the uterus. The vertex was grasped, rotated to an OA presentation and delivered with a combination of traction and fundal pressure. The cord was clamped and cut and a viable was suctioned and handed off to the attending NICU staff and was a 6 lbs. 8 oz. female with Apgars of 8 and 9. The placenta was removed manually, the interior of the uterus was cleansed with moist lap packs and the uterus was exteriorized. The uterine incision was closed with a double imbricating layer of 0 Vicryl suture in a running fashion. Hemostasis was adequate and the uterus was returned to the abdomen. Uterus was well contracted. The abdomen was then closed in layers: the rectus muscles were closed with several [id number] sutures of 0 Vicryl, the fascia was closed with running sutures of 0 Vicryl starting at both side corners in turn and tied together in the midline. The subcutaneous tissue was irrigated and then closed with several interrupted sutures of 2-0 plain and the skin was closed with a running subcuticular suture of 4-0 Vicryl. Sponge and Lap count correct X 3, estimated blood loss was 1000 mL and the Lipscomb was draining clear urine. The patient tolerated the procedure well and was discharged to PACU in good condition.
[2017-01-06] MEDS ORDERED: PITOCin/NS 20 UNIT/1000ML DRIP 20 UNITS/1,000 ML BAG IV SCH (03:46)
[2017-01-06] MEDS ORDERED: TORADOL IV PRN (03:46)
[2017-01-06] MEDS ORDERED: LANSINOH TP PRN (03:46)
[2017-01-06] MEDS ORDERED: NARCAN 0.4 MG/1 ML IV PRN (03:46)
[2017-01-06] MEDS ORDERED: SODIUM CHLORIDE FLUSH SYRINGE 10 ML IV PRN (03:46)
[2017-01-06] MEDS ORDERED: TUCKS PAD TP PRN (03:46)
[2017-01-06] MEDS ORDERED: D5LR 1,000 ML IV SCH (03:46)
[2017-01-06] MEDS ORDERED: TYLENOL PO PRN (03:46)
[2017-01-06] MEDS ORDERED: MORPHINE IV PRN ×2 (03:46)
--- NOTE | 2017-01-06 06:36 | Progress Note ---
Assessment and Plan Pt w/o complaint this AM VSS BP 101/68 @ 0430 P: continue pathway Advance as tolerated Subjective - Subjective Date of service: 01/06/17 (6hours s/p section) Principal diagnosis: Day # 1 s/p c/s failure to dilate / PreE Patient reports: voiding normally (clear yellow uring to aquino bag), pain well controlled : doing well Objective - Vital Signs Latest vital signs: Vital Signs Temp Pulse Resp BP Pulse Ox 01/06/17 04:30 98.6 F 77 16 101/68 01/06/17 02:45 92 H 28 H 138/84 94 01/06/17 02:40 91 H 29 H 139/86 93 01/06/17 02:25 92 H 28 H 152/82 89 01/06/17 02:10 92 H 30 H 150/87 86 01/06/17 01:55 89 27 H 138/94 80 L 01/06/17 01:51 88 27 H 143/73 98 01/06/17 01:45 98.7 F 89 20 125/71 98 01/05/17 22:59 104 H 138/79 01/05/17 22:41 105 H 97 01/05/17 22:36 109 H 98 01/05/17 22:31 99 H 95 01/05/17 22:27 99 H 94 01/05/17 22:26 107 H 97 01/05/17 22:21 101 H 97 01/05/17 22:16 104 H 98 01/05/17 22:11 116 H 97 01/05/17 22:06 110 H 98 01/05/17 22:01 107 H 97 01/05/17 22:00 100 H 167/82 01/05/17 21:56 101 H 99 01/05/17 21:51 106 H 98 01/05/17 21:46 105 H 98 01/05/17 21:41 107 H 98 01/05/17 21:36 97 H 97 01/05/17 21:34 106 H 94 01/05/17 21:31 99 H 97 01/05/17 21:29 96 H 146/94 01/05/17 21:26 100 H 97 01/05/17 21:21 105 H 98 01/05/17 21:16 102 H 94 01/05/17 21:11 111 H 98 01/05/17 21:06 102 H 97 01/05/17 21:01 98 H 97 01/05/17 21:00 92 H 151/88 01/05/17 20:56 105 H 94 01/05/17 20:51 116 H 96 01/05/17 20:46 107 H 94 01/05/17 20:45 99 H 94 01/05/17 20:41 92 H 98 01/05/17 20:39 91 H 94 01/05/17 20:36 94 H 98 01/05/17 20:31 99 H 151/92 96 01/05/17 20:26 97 H 98 01/05/17 20:21 107 H 98 01/05/17 20:16 101 H 94 01/05/17 20:11 108 H 99 01/05/17 20:06 107 H 99 01/05/17 20:01 98 H 98 01/05/17 20:00 100 H 121/59 01/05/17 19:56 99 H 98 01/05/17 19:51 100 H 99 01/05/17 19:46 95 H 100 01/05/17 19:41 108 H 100 01/05/17 19:40 97.7 F 98 H 18 118/58 99 01/05/17 19:36 101 H 99 01/05/17 19:29 92 H 118/58 01/05/17 18:59 91 H 128/65 01/05/17 18:29 89 145/86 01/05/17 18:22 91 H 98 01/05/17 18:17 90 99 01/05/17 18:12 86 98 01/05/17 18:07 104 H 98 01/05/17 18:02 92 H 97 01/05/17 18:00 87 137/78 01/05/17 17:57 100 H 97 01/05/17 17:52 88 97 01/05/17 17:47 85 99 01/05/17 17:42 87 98 01/05/17 17:39 100 H 94 01/05/17 17:36 92 H 97 01/05/17 17:31 87 93 01/05/17 17:29 88 132/75 01/05/17 17:26 89 94 01/05/17 17:22 91 H 94 01/05/17 17:21 87 95 01/05/17 17:16 88 94 01/05/17 16:59 83 98/55 01/05/17 16:29 90 117/59 01/05/17 16:00 88 115/55 01/05/17 15:30 88 118/55 01/05/17 15:01 97 H 116/55 01/05/17 14:29 100 H 126/68 01/05/17 14:27 87 135/72 01/05/17 14:16 84 100 01/05/17 14:11 87 99 01/05/17 14:06 84 97 01/05/17 14:01 91 H 96 01/05/17 13:59 93 H 133/61 01/05/17 13:55 90 98 01/05/17 13:49 85 94 01/05/17 13:44 84 98 01/05/17 13:39 82 96 01/05/17 13:34 81 95 01/05/17 13:29 77 97 01/05/17 13:28 75 113/57 01/05/17 13:26 82 115/59 01/05/17 13:24 77 122/58 97 01/05/17 13:22 87 117/56 94 01/05/17 13:20 80 120/60 01/05/17 13:19 83 97 01/05/17 13:18 82 119/58 01/05/17 13:16 82 124/62 01/05/17 13:14 80 123/64 92 01/05/17 13:12 83 134/66 01/05/17 13:10 83 127/61 01/05/17 13:09 79 94 01/05/17 13:08 78 127/62 01/05/17 13:06 82 129/69 01/05/17 13:04 79 125/64 91 01/05/17 13:02 76 131/67 01/05/17 13:00 77 118/59 01/05/17 12:59 74 88 01/05/17 12:58 75 120/60 01/05/17 12:56 74 117/62 94 01/05/17 12:54 76 119/65 97 01/05/17 12:52 75 117/64 01/05/17 12:50 73 113/57 93 01/05/17 12:49 80 92 01/05/17 12:48 76 115/56 01/05/17 12:46 78 103/62 01/05/17 12:44 76 98/55 93 01/05/17 12:42 81 102/53 01/05/17 12:40 75 112/55 01/05/17 12:39 80 95 01/05/17 12:38 81 110/56 01/05/17 12:37 86 94 01/05/17 12:36 85 110/59 01/05/17 12:34 83 99/55 96 01/05/17 12:32 87 122/59 01/05/17 12:30 84 121/55 01/05/17 12:29 87 97 01/05/17 12:28 86 115/56 01/05/17 12:26 90 121/61 01/05/17 12:24 87 119/57 97 01/05/17 12:22 96 H 117/58 01/05/17 12:20 88 130/58 01/05/17 12:19 88 86 01/05/17 12:18 91 H 122/60 01/05/17 12:16 83 122/58 01/05/17 12:14 82 120/59 97 01/05/17 12:12 88 128/58 01/05/17 12:10 88 125/55 01/05/17 12:09 93 H 98 01/05/17 12:06 87 139/65 01/05/17 12:04 93 H 97 01/05/17 11:59 93 H 98 01/05/17 11:54 95 H 96 01/05/17 11:53 90 150/66 01/05/17 11:24 88 128/60 01/05/17 10:53 96 H 129/61 01/05/17 10:24 84 116/55 01/05/17 10:21 110 H 97 01/05/17 10:16 89 94 01/05/17 10:11 93 H 97 01/05/17 10:10 84 94 01/05/17 10:06 90 94 01/05/17 10:04 90 94 01/05/17 10:01 91 H 95 01/05/17 09:58 91 H 94 01/05/17 09:56 89 95 01/05/17 09:53 82 113/57 01/05/17 09:52 90 94 01/05/17 09:51 85 94 01/05/17 09:47 83 94 01/05/17 09:46 88 95 01/05/17 09:41 87 97 01/05/17 09:40 86 94 01/05/17 09:36 89 95 01/05/17 09:33 91 H 94 01/05/17 09:31 96 H 96 01/05/17 09:26 93 H 97 01/05/17 09:25 82 127/72 01/05/17 09:21 80 94 01/05/17 09:16 79 94 01/05/17 09:11 78 92 01/05/17 09:10 84 94 01/05/17 09:06 88 95 01/05/17 09:04 85 94 01/05/17 09:01 88 97 01/05/17 08:56 98.1 F 92 H 18 105/55 97 01/05/17 08:53 91 H 108/55 01/05/17 08:51 105 H 97 01/05/17 08:46 89 96 Intake and Output 01/05/17 01/05/17 01/06/17 14:59 22:59 06:59 Intake Total 1999 50 2075 Output Total 1750 Balance 1999 50 325 Intake: IV 1999 50 1525 Lactated Ringers 1,000 ml 2000 @ 125 mls/hr IV DIRECT MIKEL Rx#:[id number] PITOCin/NS 20 UNIT/1000ML 375 DRIP 20 units In 1,000 ml @ 125 mls/hr IV DIRECT MIKEL Rx#:[id number] POLYCILLIN/NS 1 GM/50 ML 50 1 gm In 50 ml @ 100 mls/ hr IV Q4HR MIKEL Rx#: [id number] Oral 300 Intake, Free Water 250 Output: Urine 1750 Uretheral (Aquino) 900 Other: Total, Intake Amount 300 Estimated Blood Loss 1,000 - Exam Breasts: Present: normal Cardiovascular: Present: Regular rate Lungs: Present: Normal air movement Abdomen: Present: normal appearance, soft, normal bowel sounds Uterus: Present: normal, fundal height below umbilicus Extremities: Present: edema Deep Tendon Reflex Grade: Normal +2 Incision: Present: dry, intact, dressed (to be removed later today)
[2017-01-06] MEDS ORDERED: BENADRYL PO ONE (08:18)
[2017-01-06] MEDS: ANCEF/NS 1 GM/50 ML 1 GM/50 ML BAG IV SCH ×2 (08:38→16:24)
[2017-01-06] MEDS: ROBITUSSIN PO PRN ×2 (08:51→22:25)
[2017-01-06] MEDS ORDERED: BENADRYL PO PRN (09:00)
[2017-01-06] MEDS: COLACE PO SCH ×2 (09:49→22:24)
[2017-01-06] MEDS: FEOSOL PO SCH ×2 (09:50→22:24)
[2017-01-06] MEDS: PEPCID PO SCH ×2 (09:50→22:24)
--- NOTE | 2017-01-06 10:40 | Query- General ---
[place]ia Small____Poornima Date:____01/06/17 Assurance Manager/CDS:___Antonio / Klaus Phone#:____[phone] Exercise your independent professional judgment when responding to this query. Questions asked do not imply a particular answer is desired or expected. We greatly appreciate your clarification on this issue. Clinical Documentation States: A 36-year-old female who presents for induction of labor. (H&P, EH CHONG MD, 01/02/17) "Pre-operative diagnosis: Induction of labor at 37 weeks gestation for chronic hypertension and superimposed preeclampsia with normal blood pressures during labor, failure to progress past 9 cm, failure of descent, morbid obesity, advanced maternal age" (OP Report, Cristina Guerrero M.D. 01/06/2017) Clinical Findings Show (include reference to source document): BMI 51.6 Given the above clinical scenario can you please provide an appropriate diagnosis based on your knowledge of the patient: PHYSICIAN RESPONSE: [ ] Obesity [ ] Morbid obesity [ ] Other (Please specify) [ ] Clinically undetermined Present on Admission: [ ] Yes (Y) [ ] Clinically undeterminable (W) [ ]No(N) Please also document response in your Progress Notes and/or Discharge Summary and indicate if the condition was present on admission. KIKI
[2017-01-06] MEDS ORDERED: VERSED ONE (12:30)
[2017-01-06] MEDS ORDERED: DIPRIVAN 10 MG/ML IV ONE (12:30)
[2017-01-06] MEDS: MOTRIN PO PRN (13:05)
[2017-01-06] MEDS: NORCO 5/325 PO PRN (13:06)
[2017-01-06 17:07] LABS: Hematocrit 28.6 % (30.3-42.9); Hemoglobin 9.5 gm/dl (10.1-14.3)
[2017-01-07] MEDS: NORCO 5/325 PO PRN ×4 (02:02→23:49)
[2017-01-07] MEDS: MOTRIN PO PRN ×4 (02:02→23:47)
[2017-01-07] MEDS ORDERED: BOOSTRIX IM ONE (06:00)
--- NOTE | 2017-01-07 11:00 | Progress Note ---
Assessment and Plan Pt resting No c/o pain voiced. Pt is upset that NB is now in the NICU with " some breathing problem" BP 146/94 Denies JIMENEZ, blurred vision, chest pain FF below umb Lochia scant Incision D&I No s/sx of anemia Doing well s/p section; chronic hypertension P: Cont pathway Consulted with Will start labetalol 200mg po BID Subjective - Subjective Date of service: 01/07/17 (pt resting; voices concern @ NB who is now in the NICU) Principal diagnosis: Day # 2 s/p c/s failure to dilate / PreE Patient reports: appetite normal, voiding normally, pain well controlled, ambulating normally [place]: in NICU Objective - Vital Signs Latest vital signs: Vital Signs Temp Pulse Resp BP 01/07/17 08:15 98.4 F 90 19 142/94 01/07/17 02:02 18 01/06/17 16:26 99 F 80 18 122/70 01/06/17 12:30 98.7 F 80 20 112/60 Intake and Output 01/06/17 01/07/17 01/07/17 22:59 06:59 14:59 Intake Total 480 120 Balance 480 120 Intake: Oral 480 120 Other: Total, Intake Amount 480 120 Voiding Method Toilet # Voids 1 - Exam Breasts: Present: normal Cardiovascular: Present: Regular rate Lungs: Present: Normal air movement Abdomen: Present: normal appearance, soft Uterus: Present: normal, fundal height below umbilicus Extremities: Present: normal Incision: Present: normal, dry, intact - Labs Labs: Abnormal lab results 01/06/17 Range/Units 16:36 Hgb 9.5 L (10.1-14.3) gm/dl Hct 28.6 L (30.3-42.9) %
[2017-01-07] MEDS: FEOSOL PO SCH ×2 (11:25→21:57)
[2017-01-07] MEDS: PEPCID PO SCH ×2 (11:26→21:57)
[2017-01-07] MEDS: COLACE PO SCH ×2 (11:32→21:57)
[2017-01-07] MEDS: NORMODYNE PO SCH ×2 (11:32→21:58)
--- NOTE | 2017-01-07 17:16 | Progress Note ---
Subjective Date of service: 01/07/17 Principal diagnosis: Day # 2 s/p c/s failure to dilate / PreE Interval history: 1st POD after Patient is in the bed, comfortable. Pain is well controlled with pain meds. Ambulated well. No residual neurological deficit. No Pruritus. No anesthesia complications Objective - Constitutional Vitals: Vital Signs - 12hr 01/07/17 01/07/17 01/07/17 08:15 11:32 12:15 Temperature 98.4 F 98.1 F Pulse Rate 90 22 L 94 H Respiratory 19 18 Rate Blood Pressure 142/94 128/82 141/76 01/07/17 16:10 Temperature 98.5 F Pulse Rate 90 Respiratory 18 Rate Blood Pressure 120/70 - Labs CBC & Chem 7: 01/06/17 16:36 01/02/17 09:44
[2017-01-08] MEDS: ROBITUSSIN PO PRN (02:33)
[2017-01-08 02:56] VITALS: BP 138/78
[2017-01-08] MEDS: MOTRIN PO PRN (05:20)
--- NOTE | 2017-01-08 07:26 | Progress Note ---
Assessment and Plan patient without complaints, anxious to leave as is heaving cardiac surgery this morning. Incision D&I, denies JIMENEZ, visual changes or epigastric pain. VSSAF, H&H stable. plan to d/c home without f/u 1 week in office. - Patient Problems (1) Chronic hypertension with superimposed pre-eclampsia Current Visit: Yes Status: Acute (2) delivery delivered Current Visit: Yes Status: Acute Subjective - Subjective Date of service: 01/08/17 Principal diagnosis: Day # 2 s/p c/s failure to dilate / PreE Patient reports: appetite normal, voiding normally, pain well controlled, flatus , bowel movement, ambulating normally, no dizzy ambulation, no nauseated [place]: transported (having heart surgery this morning) Objective - Vital Signs Latest vital signs: Vital Signs Temp Pulse Resp BP 01/08/17 05:20 18 01/08/17 01:15 99.2 F 84 20 138/78 01/07/17 23:49 18 01/07/17 23:47 18 01/07/17 21:58 84 120/86 01/07/17 16:10 98.5 F 90 18 120/70 01/07/17 12:15 98.1 F 94 H 18 141/76 01/07/17 11:32 22 L 128/82 01/07/17 08:15 98.4 F 90 19 142/94 Intake and Output 01/07/17 01/08/17 01/08/17 22:59 06:59 14:59 Intake Total 120 360 Balance 120 360 Intake: Oral 120 Intake, Free Water 360 Other: Total, Intake Amount 120 Voiding Method Toilet # Voids Void 1 1 # Bowel Movements 1 - Exam Breasts: Present: normal Cardiovascular: Present: Regular rate Lungs: Present: Clear to auscultation, Normal air movement Abdomen: Present: normal appearance, soft, normal bowel sounds Vulva: both: normal Uterus: Present: normal, firm, fundal height at umbilicus Extremities: Present: normal Deep Tendon Reflex Grade: Normal +2 Incision: Present: normal, dry, intact
--- NOTE | 2017-01-08 07:28 | Discharge Summary ---
Providers - Providers Date of Admission: 01/01/17 22:57 Date of discharge: 01/08/17 (desires d/c home) Attending physician: EH CHONG Primary care physician: EH CHONG Hospitalization Reason for admission: induction of labor (pre-e @ 37 weeks) Delivery: Procedure: primary low transverse Episiotomy: none Laceration: none Incision: normal, dry, intact Other procedures: none complications: none Discharge diagnosis: IUP at term delivered [place] baby: female Hospital course: uncomplicated c/s delivery Condition at discharge: Good Disposition: DC-01 TO HOME OR SELFCARE - Discharge Diagnoses (1) Chronic hypertension with superimposed pre-eclampsia Status: Acute (2) delivery delivered Status: Acute Plan - Discharge Medications Prescriptions: HYDROcodone/APAP 5-325 [[place] 5/325] 1 - 2 each PO Q6HR PRN #30 tablet PRN Reason: Pain Ibuprofen [Motrin 800 MG tab] 800 mg PO Q8HR PRN #30 tablet PRN Reason: Pain - Provider Discharge Summary Activity: routine, no sex for 6 weeks, no heavy lifting 4 weeks, no strenuous exercise Diet: routine Instructions: routine Additional instructions: [] Smoking cessation referral if applicable(refer to patient education folder for contact #) [] Refer to [facility]'s [facility] Booklet Call your doctor immediately for: * Fever > 100.5 * Heavy vaginal bleeding ( >1 pad per hour) * Severe persistent headache * Shortness of breath * Reddened, hot, painful area to leg or breast * Drainage or odor from incision. * Keep incision clean and dry at all times and follow doctor's instructions regarding bathing/showering - Follow up plan Follow up: EH CHONG MD [Primary Care Provider] - 7 Days (Congratulations! Please call [phone] to schedule your incision and blood pressure check in 1 week. Call for any questions or concerns. ) Forms: [facility] Discharge Summary
== END 2017-01-08 08:25 | disposition home or self-care (01) | DRG 765 ==
LOC: TRG 22:24 → LD 22:57 → OB 01-06 04:56
PROVIDERS: ADMIT Obstetrics & Gynecology; ATTEND Obstetrics & Gynecology
PROC: 10D00Z1 Extraction of Products of Conception, Low, Open Approach (ICD-10-PCS; principal; 2017-01-06)
DX: O11.4 Pre-existing hypertension with pre-eclampsia, complicating childbirth (principal); Z68.43 Body mass index [BMI] 50.0-59.9, adult; O99.824 Streptococcus B carrier state complicating childbirth; O99.214 Obesity complicating childbirth; O42.02 Full-term premature rupture of membranes, onset of labor within 24 hours of rupture; E66.01 Morbid (severe) obesity due to excess calories; Z88.8 Allergy status to other drugs, medicaments and biological substances; Z3A.37 37 weeks gestation of pregnancy; Z37.0 Single live birth; O09.523 Supervision of elderly multigravida, third trimester; O32.4XX0 Maternal care for high head at term, not applicable or unspecified; O32.8XX0 Maternal care for other malpresentation of fetus, not applicable or unspecified; O34.13 Maternal care for benign tumor of corpus uteri, third trimester; D25.9 Leiomyoma of uterus, unspecified
CPT/HCPCS: 36415; 59200; 76815; 80074; 82565; 82803; 84550; 85014; 85018; 85027; 86592; 86850; 86900; 86901; 88307; 90715; 99211; A6250; G0463; J0290; J0595; J0690; J1885; J2250; J2270; J2405; J2590; J2704; J2765; J3010; J7120; J7121

== ENCOUNTER 2021-04-01 08:22 | Outpatient (CLI) | payer MEDICAID ==
--- NOTE | 2021-04-01 09:25 | XRay Report ---
CHEST 2 VIEWS INDICATION / CLINICAL INFORMATION: MORBID OBESITY. COMPARISON: 04/11/2012 FINDINGS: SUPPORT DEVICES: None. HEART / MEDIASTINUM: No significant abnormality. LUNGS / PLEURA: No significant pulmonary or pleural abnormality. No pneumothorax. ADDITIONAL FINDINGS: No significant additional findings. IMPRESSION: 1. No acute findings. Signer Name: Aj Saini DO Signed: 04/01/2021 9:20 AM Workstation Name: [id number]
--- NOTE | 2021-04-01 09:39 | Fluoroscopy Report ---
BARIUM SWALLOW Indication: MORBID OBESITY. Technique: Single contrast barium technique utilized to evaluate the esophagus. FINDINGS: To begin the exam, swallowing was evaluated in the lateral position under direct fluorosco py. Swallowing was normal. No mucosal irregularity, mass, mass effect, or critical stenosis. There were no abnormal tertiary c ontractions as seen with dysmotility. No gastroesophageal reflux. IMPRESSION: Unremarkable exam. Fluoroscopic time: 0.8 minutes Number of fluoroscopic images: 39 Signer Name: Fuad Hyatt Jr, MD Signed: 04/01/2021 9:35 AM Workstation Name: [id number]
== END 2021-04-01 08:23 | disposition home or self-care (01) ==
LOC: FLUORO 08:22
PROVIDERS: ATTEND Surgery
DX: E66.01 Morbid (severe) obesity due to excess calories (principal); E66.2 Morbid (severe) obesity with alveolar hypoventilation
CPT/HCPCS: 71046; 74220

== ENCOUNTER 2021-07-03 15:08 | Outpatient (CLI) | payer MEDICAID ==
[2021-07-03 16:01] LABS: Basophils % (Auto) 0.7 % (0.0-1.8); Eosinophils # (Auto) 0.1 K/mm3 (0.0-0.4); Eosinophils % (Auto) 1.1 % (0.0-4.3); Hematocrit 40.6 % (30.3-42.9); Hemoglobin 13.5 gm/dl (10.1-14.3); Lymphocytes # (Auto) 1.8 K/mm3 (1.2-5.4); Lymphocytes % (Auto) 34.6 % (13.4-35.0); Mean Corpuscular HGB Conc 33 % (30-34); Mean Corpuscular Volume 93 fl (79-97); Monocytes # (Auto) 0.5 K/mm3 (0.0-0.8); Monocytes % (Auto) 9.2 % (0.0-7.3); Platelet Count 313 K/mm3 (140-440); Red Blood Count 4.37 M/mm3 (3.65-5.03); Red Cell Distribution Width 14.1 % (13.2-15.2)
[2021-07-03 16:22] LABS: % Iron Saturation 28.91 %; Alanine Aminotransferase 30 units/L (7-56); Albumin 4.5 g/dL (3.9-5); Blood Urea Nitrogen 8 mg/dL (7-17); Calcium 9.8 mg/dL (8.4-10.2); Chol/HDL Ratio 2.53 %; HDL Cholesterol 77 mg/dL (40-59); Hemolysis Index 3; Iron 109 ug/dL (37-170); LDL Cholesterol,Direct 104 mg/dL (50-130); Total Iron Binding Capacity 377 mcg/dL (250-450)
[2021-07-03 16:36] LABS: BUN/Creatinine Ratio 11
== END 2021-07-03 15:09 | disposition home or self-care (01) ==
LOC: LAB 15:08
PROVIDERS: ATTEND Surgery
DX: Z01.812 Encounter for preprocedural laboratory examination (principal); Z13.29 Encounter for screening for other suspected endocrine disorder; Z13.21 Encounter for screening for nutritional disorder; Z13.1 Encounter for screening for diabetes mellitus; K30 Functional dyspepsia; E66.01 Morbid (severe) obesity due to excess calories; E55.9 Vitamin D deficiency, unspecified
CPT/HCPCS: 36415; 80053; 80061; 82306; 82607; 82728; 83036; 83550; 84443; 85025; 85730

== ENCOUNTER → 2021-09-05 | Outpatient (CLI) | payer MEDICAID | END | disposition home or self-care (01) | LOC: SLR 11:00 | PROVIDERS: ATTEND Surgery | DX: G47.30 Sleep apnea, unspecified (principal) | CPT/HCPCS: G0399 ==

== ENCOUNTER 2021-09-22 11:00 | Outpatient (CLI) | payer MEDICAID | END 2021-09-22 11:01 | disposition home or self-care (01) | LOC: SLR 11:00 | PROVIDERS: ATTEND Surgery | DX: G47.33 Obstructive sleep apnea (adult) (pediatric) (principal) | CPT/HCPCS: 95811 ==

== ENCOUNTER 2021-12-02 07:25 | Day surgery (SDC) | payer MEDICAID ==
[~2021-12-02 07:25] MED LIST: SODIUM CHLORIDE 0.9% 1000 ML 1,000 ML IV SCH
--- NOTE | 2021-12-02 08:42 | Anesthesia Day of Surgery ---
Anesthesia Day of Surgery - Day of Surgery Patient Examined: Yes Patient H&P Reviewed: Yes Patient is NPO: Yes
--- NOTE | 2021-12-02 08:42 | Anesthesia Consultation ---
Anesthesia Consult and Med Hx Date of service: 12/02/21 - Airway Anesthetic Teeth Evaluation: Good, Partials (permanent upper) ROM Head & Neck: Adequate Mental/Hyoid Distance: Adequate Mallampati Class: Class II Intubation Access Assessment: Probably Good - Pre-Operative Health Status ASA Pre-Surgery Classification: ASA3 Proposed Anesthetic Plan: MAC - Pulmonary Hx Smoking: Yes (2-3cigs/day) Hx Respiratory Symptoms: No Hx Sleep Apnea: Yes (has not started CPAP yet) - Cardiovascular System Hx Hypertension: Yes (took antihypertensives this morning) - Central Nervous System CVA: No - Gastrointestinal Hx Gastroesophageal Reflux Disease: Yes (took anti-reflux meds this morning ) - Endocrine Hx Renal Disease: No Hx Liver Disease: No Hx Insulin Dependent Diabetes: No Hx Non-Insulin Dependent Diabetes: No Hx Thyroid Disease: No - Other Systems Hx Obesity: Yes (BMI 47.6) - Additional Comments Anesthesia Medical History Comments: No hx anesthetic complications.
[2021-12-02] MEDS ORDERED: LIDOCAINE MPF (2%) 20 MG/1 ML VIAL 5 ML ONE (10:22)
[2021-12-02] MEDS ORDERED: propofoL 200 MG/20 ML VIAL IV ONE (10:23)
--- NOTE | 2021-12-02 10:47 | Discharge Summary ---
Providers - Providers Date of Admission: 12/02/2021 Date of discharge: 12/02/21 Attending physician: ANAYELI ASKEW MD Primary care physician: EVIE SALAZAR Hospitalization Reason for admission: pre-op planning egd Condition: Good Procedures: egd with bx Hospital course: Pt presented for a pre-op EGD as part of planning for up coming bariatric surgery. Procedure was uneventful and pt recovered well and was d ischarged to home. Disposition: 01 HOME / SELF CARE / HOMELESS Final Discharge Diagnosis (Prints w/discharge instructions): morbid obesity, gerd Core Measure Documentation - Palliative Care Palliative Care/ Comfort Measures: Not Applicable - Core Measures Any of the following diagnoses?: none Exam - Physical Exam Narrative exam: unchanged from pre-op exam - Constitutional Vitals: Temp Pulse Resp BP Pulse Ox 98.4 F 90 12 130/92 12/02/21 07:55 12/02/21 07:55 12/02/21 07:55 12/02/21 07:55 Plan Activity: advance as tolerated Diet: low carbohydrate Follow up with: EVIE SALAZAR MD [Primary Care Provider] - 7 Days
--- NOTE | 2021-12-02 10:49 | Operative Report ---
Operative Report Operative Report: DATE: 12/02/2021 SURGERY: Upper endoscopy. SURGEON: Jacqui Khoury M.D. PROCEDURE: EGD with biopsy PRE OP DX: morbid obesity, GERD POST OP DX: morbid obesity, GERD TYPE OF ANESTHESIA: MAC. ESTIMATED BLOOD LOSS: None. COMPLICATIONS: None. SPECIMENS REMOVED: antral biopsy FINDINGS: 1. Small hiatal hernia. 2. Otherwise, normal esophagus, stomach and first portion of duodenum. INDICATIONS:INDICATION FOR PROCEDURE: Patient is a 41-year-old female with a long history of morbid obesity. She is planned to have a weight loss procedure and is here for preoperative planning EGD. PROCEDURE DETAILS: After consent was reviewed, patient was taken back to the operating room where patient was placed in the left lateral decubitus position and a bite block was placed in the mouth. After a time-out was called, MAC anesthesia was initiated. I then passed the endoscope into her oropharynx, into her esophagus, visualized the entire esophagus, which was all within normal limits. Z-line was noted to about 40cm from incisors. I then visualized the stomach and the first portion of the duodenum and there were no abnormalities I could clearly visualize except for antral gastritis and cobble stoning mucosal changes in the body of the stomach. A cold forceps biopsy of the antrum was taken and will be sent to pathology to evaluate for H.pylori. I then retroflexed the scope in the stomach and visualized the hiatus and I could see a small hiatal hernia. I then desufflated the stomach and removed the endoscope. Patient tolerated procedure well and was transferred to recovery room in good and stable condition.
--- NOTE | 2021-12-02 11:54 | Post Anesthesia Evaluation ---
- Post Anesthesia Evaluation Patient Participated: Yes Airway Patent: Yes Stable Respiratory Function: Yes Nausea/Vomiting: No Temp > 96.8F: Yes Pain Manageable: Yes Adequeate Hydration: Yes Anesthesia Complications: No
[2021-12-02 14:54] VITALS: BP 122/82
== END 2021-12-02 11:05 | disposition home or self-care (01) ==
LOC: GIO 07:25
PROVIDERS: ATTEND Surgery
DX: K21.9 Gastro-esophageal reflux disease without esophagitis (principal); E66.01 Morbid (severe) obesity due to excess calories; K44.9 Diaphragmatic hernia without obstruction or gangrene; K29.50 Unspecified chronic gastritis without bleeding; B96.81 Helicobacter pylori [H. pylori] as the cause of diseases classified elsewhere; F17.210 Nicotine dependence, cigarettes, uncomplicated; G47.30 Sleep apnea, unspecified; M19.90 Unspecified osteoarthritis, unspecified site; Z80.8 Family history of malignant neoplasm of other organs or systems; Z68.42 Body mass index [BMI] 45.0-49.9, adult; Z79.899 Other long term (current) drug therapy; Z91.013 Allergy to seafood; Z98.891 History of uterine scar from previous surgery; Z82.49 Family history of ischemic heart disease and other diseases of the circulatory system
CPT/HCPCS: 43239; 81025; 88305; 88312; 88342; J2704; J7030